=== PATIENT | female | born 1955 | race Caucasian/White ===

== ENCOUNTER → 2018-04-30 14:59 | Outpatient (CLI) | payer OTHER, SELFPAY ==
--- NOTE | 2018-04-30 | DI.MG.S_ITS ---
BILATERAL DIGITAL SCREENING MAMMOGRAM 3D/2D WITH CAD: 04/30/2018 CLINICAL: Routine screening. Family history of breast cancer. Comparison is made to exams dated: 01/02/2017 mammogram, 11/30/2015 mammogram, and 10/13/2014 mammogram - [facility]. The tissue of both breasts is extremely dense, which lowers the sensitivity of mammography. Current study was also evaluated with a Computer Aided Detection (CAD) system. There are benign vascular calcifications and calcifications in both breasts. No significant masses, calcifications, or other findings are seen in either breast. IMPRESSION: BENIGN There is no mammographic evidence of malignancy. A 1 year screening mammogram is recommended. This exam was interpreted at Station ID: [id number]. NOTE: For mammograms, a report in lay terms will be sent to the patient. Approximately 15% of breast malignancies will not be visualized mammographically. In the management of a palpable breast mass, a negative mammogram must not discourage biopsy of a clinically suspicious lesion. Electronically Signed By: Alonso king/michel:05/02/2018 03:15:22 letter sent: Normal Exam ACR BI-RADS Category 2: Benign Finding(s) 3342F
== END ==
PROVIDERS: Visit Provider Registered Nurse Diabetes Educator
DX: Z12.31 Encounter for screening mammogram for malignant neoplasm of breast (principal); Z80.3 Family history of malignant neoplasm of breast
CPT/HCPCS: 77063; 77067

== ENCOUNTER → 2019-05-11 14:51 | Outpatient (CLI) | payer OTHER, SELFPAY ==
--- NOTE | 2019-05-11 | DI.MG.S_ITS ---
BILATERAL DIGITAL SCREENING MAMMOGRAM 3D/2D WITH CAD: 05/11/2019 CLINICAL: Routine screening. Family history of breast cancer. Comparison is made to exams dated: 04/30/2018 mammogram - [facility], 01/02/2017 mammogram, 11/30/2015 mammogram, and 10/13/2014 mammogram - [facility]. The tissue of both breasts is extremely dense, which lowers the sensitivity of mammography. Current study was also evaluated with a Computer Aided Detection (CAD) system. There are benign calcifications in both breasts. There also are benign vascular calcifications in both breasts. No significant masses, calcifications, or other findings are seen in either breast. There has been no significant interval change. IMPRESSION: There is no mammographic evidence of malignancy. A 1 year screening mammogram is recommended. This exam was interpreted at Station ID: [id number]. NOTE: For mammograms, a report in lay terms will be sent to the patient. Approximately 15% of breast malignancies will not be visualized mammographically. In the management of a palpable breast mass, a negative mammogram must not discourage biopsy of a clinically suspicious lesion. Electronically Signed By: Pelon brooke/michel:05/11/2019 16:09:45 letter sent: Normal Exam ACR BI-RADS Category 2: Benign Finding(s) 3342F
== END ==
PROVIDERS: PCP Nurse Practitioner Family; Visit Provider Nurse Practitioner Family
DX: Z12.31 Encounter for screening mammogram for malignant neoplasm of breast (principal); Z80.3 Family history of malignant neoplasm of breast
CPT/HCPCS: 77063; 77067

== ENCOUNTER 2020-03-04 14:06 | Emergency (ER) | payer OTHER, SELFPAY ==
[2020-03-04] VITALS (8 sets, daily range): BP systolic 115–138; BP diastolic 55–92; PULSE 79–98; RESP 18; TEMP 37.3; O2SAT 95–99
[2020-03-04 16:55] LABS: Add Manual Diff / Slide Review NO; Basophils Absolute Auto 100 /uL (0-100); Basophils Percent Auto 0.6 % (0-2); Eosinophils Absolute Auto 0 /uL (0-450); Eosinophils Percent Auto 0.3 % (2-4); Hematocrit 46.6 % (36-46); Hemoglobin 16.1 g/dL (12.0-16.0); Lymphocytes Absolute Auto 2200 /uL (1100-4500); Lymphocytes Percent Auto 20.9 % (25-40); Mean Corpuscular HGB Conc 34.6 % (30-36); Mean Corpuscular Hemoglobin 32.9 PG (26-34); Mean Corpuscular Volume 95.1 fL (80-100); Monocytes Absolute Auto 700 /uL (0-900); Monocytes Percent Auto 6.2 % (3-14); Neutrophils Absolute Auto 7700 /uL (1500-7000); Platelet Count 227 X10^3/uL (150-400); Red Blood Cell Count 4.91 X10^6/uL (4.0-5.2); Red Cell Distribution Width 12.7 % (11.6-14.8); White Blood Cell Count 10.6 X10^3/uL (4.5-11.0)
[2020-03-04] MEDS: ONDANSETRON 4 MG/2 ML INJ (17:01)
[2020-03-04] MEDS: SODIUM CHLORIDE 0.9% 1,000 ML 1000 ML IV (17:03)
[2020-03-04 17:06] LABS: Prothrombin Time 11.3 SECONDS (10.1-12.7)
[2020-03-04 17:09] LABS: PTT Partial Thromboplastin Tim 26 SECONDS (26.4-36.2)
[2020-03-04 17:16] LABS: Alanine Aminotransferase 18 IU/L (<35); Albumin 4.6 g/dL (3.5-5.0); Albumin Globulin Ratio 1.6 (1.0-2.8); Alkaline Phosphatase 111 U/L (38-126); Aspartate Aminotransferase 27 IU/L (14-36); BUN Creatinine Ratio 16.4 (6-22); Bilirubin Total 0.8 mg/dL (0.2-1.3); Blood Urea Nitrogen 12 mg/dL (7-17); Calcium 10.3 mg/dL (8.4-10.2); Carbon Dioxide 25 mmol/L (22-32); Chloride 101 mmol/L (98-107); Estimated Glomerular Filt Rate > 60.0 mL/min (>60); Globulin 2.9 g/dL (1.7-4.1); Glucose 94 mg/dL (80-110); HEMOLYSIS 21 (0-50); Lipase 85 U/L (23-300); Potassium 4.2 mmol/L (3.4-5.1); Sodium 134 mmol/L (137-145); Total Protein 7.5 g/dL (6.3-8.2)
--- NOTE | 2020-03-04 17:49 | DI.CT.S_ITS ---
PROCEDURE: CT ABDOMEN PELVIS W CON INDICATIONS: periumbelical pain, vomiting, stool changes TECHNIQUE: After the administration of intravenous contrast, 5 mm thick sections acquired from the diaphragm to the symphysis. 5 mm coronal and sagittal reformats were acquired. For radiation dose reduction, the following was used: automated exposure control, adjustment of mA and/or kV according to patient size. COMPARISON: None. FINDINGS: Image quality: Excellent. ABDOMEN: Lung bases: Lung bases are clear. Heart size is normal. Solid organs: Liver is normal in size and enhancement. Focal fatty replacement adjacent to the ligament. Gallbladder is unremarkable. Biliary system is non dilated. Pancreas enhances normally. Spleen is normal in size and enhancement. No adrenal nodules. Kidneys demonstrate normal size and enhancement, without hydronephrosis. Peritoneum and bowel: Bowel loops demonstrate normal wall thickness and caliber. No free fluid or air. Large amount of right colonic and transverse colonic fecal debris. Nodes and vessels: No retroperitoneal or mesenteric adenopathy by size criteria. Aorta and inferior vena cava are normal in size. Patchy atherosclerotic calcifications. Miscellaneous: No ventral hernias. PELVIS: Genitourinary: Bladder is quite distended. No bladder wall thickening. Miscellaneous: No inguinal hernias or adenopathy. Surgical absence of the uterus. Bones: No suspicious bony lesions. No vertebral body compression fractures. IMPRESSION: 1. Large amount of fecal debris. No evidence of bowel obstruction. No inflamed bowel loops identified. 2. No evidence of acute abdominal process. 3. Distended bladder. Dictated by: Yon Hicks M.D. on 03/04/2020 at 18:45 Approved by: Yon Hicks M.D. on 03/04/2020 at 18:49
--- NOTE | 2020-03-04 17:58 | ED_ITS ---
HPI - Nausea/Vomiting/Diarrhea <DARLENE Akhtar - Last Filed: 03/04/20 20:16> General Chief complaint: Nausea/Vomiting/Diarrhea Stated complaint: throwing up Time Seen by Provider: 03/04/20 17:10 Source: patient Mode of arrival: Family Vehicle Limitations: no limitations History of Present Illness HPI Narrative: This is a 64-year-old female, smoker, who presents to ED with chief complain of constipation, nausea and vomiting, periumbilical abdominal pain. Patient reports she has had constipation for last 3 weeks and had taken MiraLax and increased fiber intake and noticed uncontrollable soft stooling for last 2 weeks and stop taking MiraLax 2 weeks ago. She noticed more nor malized bowel movements 4 days ago on Saturday and feel urge for bowel movement. Patient had soft small stools about 10 times on Saturday (T-3) since then no bowel movements. Patient has noticed chills but denies fever. She has been having early satiety with decreased oral intake for solids and liquid for last 3 days. She has been having about 2 episodes of emesis daily last 2 days. Patient denies blood in her stool or emesis. Patient reports emesis is projectile. She was able to tolerate crackers yesterday. Patient denies history of abdominal surgeries in the past. Primary care physician is located at [facility]. Patient denies other significant chronic medical history. Related Data Previous Rx's Medication Instructions Recorded ondansetron 4 mg PO Q8H PRN 4 Days #7 tab 03/04/20 Allergies Allergy/AdvReac Type Severity Reaction Status Date / Time From LEVAQUIN Allergy Unknown HIVES Uncoded 03/04/20 14:43 SULFA Allergy Unknown HIVES Uncoded 03/04/20 14:43 Review of Systems <DARLENE Akhtar - Last Filed: 03/04/20 20:16> Review of Systems Narrative: General: Denies fever, (+) chills, fatigue, malaise, sweats. HEENT: Denies sinus pain, ear pain, sore throat, difficulty swallowing, dizziness. Respiratory: Denies dyspnea, cough, wheezing, hemoptysis, sputum. Cardiovascular: Denies chest pain, palpitations, orthopnea, edema. Gastrointestinal: See HPI : Denies dysuria, frequency, incontinence, hematuria, urinary retention. Musculoskeletal: Denies weakness, joint pain or bony pain. Skin: Denies rash, skin lesions, or other. Neurologic: Denies weakness, headache, numbness, change in speech, confusion, seizures, incoordination. Psychiatric: No concerning psychosocial issues. 12-point review of systems is negative except for those stated above. Patient History <Crescencio GERRY ReaganP - Last Filed: 03/04/20 20:16> Medical History (Updated 03/04/20 @ 19:53 by GERRY AkhtarP) Constipation (Acute) Social History (Updated 03/04/20 @ 18:02 by Crescencio Reagan [facility]) Smoking Status: Former smoker Smoking Status: Former smoker alcohol intake frequency: 0-2 drinks per day Substance Use Type: marijuana Exam <[facility] - Last Filed: 03/04/20 20:16> Narrative Exam Narrative: GEN: Alert, oriented x 3, well appearing and nourished, and in no acute distress. Head: Normal cephalic, atraumatic. No scalp or temporal tenderness, palpable mass or rash. EYES: Pupils are equal, round, and reactive to light and accommodation. Extraocular muscles are intact bilaterally. There is no subconjunctival hemorrhage, exudate and sclera non-icteric. ENT: Hearing grossly intact. Nose without bleeding, purulent discharge or deviation. Mucous membrane dry, no mucosal lesion. Throat without erythema, tonsillar hypertrophy or exudate. Uvula in midline, airway patent. Neck: Trachea in midline. No JVD, non-tender without lymphadenopathy. No masses or thyroid megaly. Supple, non-tender and no meningeal signs. CARDIAC: Normal regular rate and rhythm without murmurs, gallops, or rubs. No chest wall tenderness. No peripheral edema, cyanosis or pallor. Capillary refill is less than 2 seconds. RESPIRATORY: Lungs are clear to auscultate bilaterally. No cough, wheezes, rales, or rhonchi. No stridor, respiratory distress, increase work of breat luiz, or accessary muscle used. ABD: Abdomen soft and non-distended. Mild discomfort in periumbilical region per palpation. No guarding or rebound tenderness to palpate. Bowel sounds are normal in all 4 quadrants. There is no palpable masses or organomegaly. EXT: Full painless ROM of all extremities with no loss of sensation, strength, effusion or edema. SKIN: Warm, dry, normal color for patient. No erythema, lesions or rash over visible areas. BACK: Nontender without deformity or crepitance. No flank tenderness. NEUROLOGICAL: Alert and oriented to place, time and person. Sensation and motor function intact bilaterally. No facial droops, dysphasia. PSYCHIATRIC: Good judgement and reason, without hallucinations, abnormal affect or abnormal behaviors during the examination. Patient is not suicidal. Initial Vital Signs Initial Vital Signs: Vital Signs Temperature 99.1 F 03/04/20 14:37 Pulse Rate 98 H 03/04/20 14:37 Respiratory Rate 18 03/04/20 14:37 Blood Pressure 138/92 H 03/04/20 14:37 Pulse Oximetry 99 03/04/20 14:37 <Lovely Land DO - Last Filed: 03/05/20 07:41> Initial Vital Signs Initial Vital Signs: Vital Signs Temperature 99.1 F 03/04/20 14:37 Pulse Rate 98 H 03/04/20 14:37 Respiratory Rate 18 03/04/20 14:37 Blood Pressure 138/92 H 03/04/20 14:37 Pulse Oximetry 99 03/04/20 14:37 Course <DARLENE Akhtar - Last Filed: 03/04/20 20:16> Orders Ordered: Discontinued Medications Sodium Chloride (Normal Saline 0.9%) 1,000 mls @ 1,000 mls/hr IV BOLUS ONE Stop: 03/04/20 18:01 Last Infusion: 03/04/20 18:15 Dose: 0 mls/hr Documented by: Admin: 03/04/20 17:03 Dose: 1,000 mls/hr Documented by: ARIAN Magnesium Citrate (Magnesium Citrate) 300 ml PO NOW ONE Stop: 03/04/20 19:45 Last Admin: 03/04/20 20:15 Dose: 300 ml Documented by: ARIAN Reevaluation(s) Reevaluation #1: Improved nausea, vomiting, abdominal pain Time: 17:45 Consultations Consultation #1: The patient was able to void on her own after CT test. Obtained 600 mL of urine. Bladder scanner shows 0 post void residual urine. Time: 20:09 Vital Signs Vital signs: Vital Signs - 8 hr 03/04/20 14:37 03/04/20 16:58 03/04/20 17:00 Temperature 99.1 F Pulse Rate 98 H 79 81 Respiratory Rate 18 Blood Pressure 138/92 H 138/64 Pulse Oximetry 99 95 96 <Lovely Land DO - Last Filed: 03/05/20 07:41> Orders Ordered: Discontinued Medications Sodium Chloride (Normal Saline 0.9%) 1,000 mls @ 1,000 mls/hr IV BOLUS ONE Stop: 03/04/20 18:01 Last Infusion: 03/04/20 18:15 Dose: 0 mls/hr Documented by: Admin: 03/04/20 17:03 Dose: 1,000 mls/hr Documented by: ARIAN Magnesium Citrate (Magnesium Citrate) 300 ml PO NOW ONE Stop: 03/04/20 19:45 Last Admin: 03/04/20 20:15 Dose: 300 ml Documented by: ARIAN Vital Signs Vital signs: Vital Signs - 8 hr 03/04/20 14:37 03/04/20 16:58 03/04/20 17:00 Temperature 99.1 F Pulse Rate 98 H 79 81 Respiratory Rate 18 Blood Pressure 138/92 H 138/64 Pulse Oximetry 99 95 96 MDM - Nausea/Vomiting/Diarrhea <DARLENE Akhtar - Last Filed: 03/04/20 20:16> Differential Diagnosis Differential diagnosis: Likely gastroenteritis and other (Constipation, appendicitis) Medical Records Attestation: I reviewed the patient's medical records. Lab Data Attestation: I reviewed the patient's lab results. Result diagrams: 03/04/20 16:46 03/04/20 16:46 Labs: Lab Results 03/04/20 03/04/20 03/04/20 Range/Units 16:46 16:46 16:46 WBC 10.6 (4.5-11.0) X10^3/uL RBC 4.91 (4.0-5.2) X10^6/uL Hgb 16.1 H (12.0-16.0) g/dL Hct 46.6 H (36-46) % MCV 95.1 (80-100) fL MCH 32.9 (26-34) PG MCHC 34.6 (30-36) % RDW 12.7 (11.6-14.8) % Plt Count 227 (150-400) X10^3/uL Neut % (Auto) 72.0 (50-75) % Lymph % (Auto) 20.9 L (25-40) % [place] % (Auto) 6.2 (3-14) % Eos % (Auto) 0.3 L (2-4) % Baso % (Auto) 0.6 (0-2) % Neut # (Auto) 7700 H (4496-0826) /uL Lymph # (Auto) 2200 (6345-3721) /uL [place] # (Auto) 700 (0-900) /uL Eos # (Auto) 0 (0-450) /uL Baso # (Auto) 100 (0-100) /uL PT 11.3 (10.1-12.7) SECONDS INR 1.0 (0.9-1.3) APTT 26 L (26.4-36.2) SECONDS Sodium 134 L (137-145) mmol/L Potassium 4.2 (3.4-5.1) mmol/L Chloride 101 (98-107) mmol/L Carbon Dioxide 25 (22-32) mmol/L BUN 12 (7-17) mg/dL Creatinine 0.73 (0.52-1.04) mg/dL Estimated GFR > 60.0 (>60) mL/min BUN/Creatinine Ratio 16.4 (6-22) Glucose 94 (80-110) mg/dL Calcium 10.3 H (8.4-10.2) mg/dL Total Bilirubin 0.8 (0.2-1.3) mg/dL AST 27 (14-36) IU/L ALT 18 (<35) IU/L Alkaline Phosphatase 111 (38-126) U/L Total Protein 7.5 (6.3-8.2) g/dL Albumin 4.6 (3.5-5.0) g/dL Globulin 2.9 (1.7-4.1) g/dL Albumin/Globulin Ratio 1.6 (1.0-2.8) Lipase 85 (23-300) U/L Urine Color Urine Appearance Urine pH (4.5-8.0) Ur Specific Lotus (1.000-1.035) Urine Protein (Negative) Urine Glucose (UA) (Negative) g/dL Urine Ketones (NEGATIVE) Urine Occult Blood (Negative) Urine Nitrate (Negative) Urine Bilirubin (NEGATIVE) Urine Urobilinogen (0.2) E.U./dL Ur Leukocyte Esterase (NEGATIVE) Urine RBC (0-5/HPF) Urine WBC (0-5/HPF) Urine Bacteria (None) Ur Culture Indicated? 03/04/20 Range/Units 19:53 WBC (4.5-11.0) X10^3/uL RBC (4.0-5.2) X10^6/uL Hgb (12.0-16.0) g/dL Hct (36-46) % MCV (80-100) fL MCH (26-34) PG MCHC (30-36) % RDW (11.6-14.8) % Plt Count (150-400) X10^3/uL Neut % (Auto) (50-75) % Lymph % (Auto) (25-40) % [place] % (Auto) (3-14) % Eos % (Auto) (2-4) % Baso % (Auto) (0-2) % Neut # (Auto) (0824-4316) /uL Lymph # (Auto) (5069-3921) /uL [place] # (Auto) (0-900) /uL Eos # (Auto) (0-450) /uL Baso # (Auto) (0-100) /uL PT (10.1-12.7) SECONDS INR (0.9-1.3) APTT (26.4-36.2) SECONDS Sodium (137-145) mmol/L Potassium (3.4-5.1) mmol/L Chloride (98-107) mmol/L Carbon Dioxide (22-32) mmol/L BUN (7-17) mg/dL Creatinine (0.52-1.04) mg/dL Estimated GFR (>60) mL/min BUN/Creatinine Ratio (6-22) Glucose (80-110) mg/dL Calcium (8.4-10.2) mg/dL Total Bilirubin (0.2-1.3) mg/dL AST (14-36) IU/L ALT (<35) IU/L Alkaline Phosphatase (38-126) U/L Total Protein (6.3-8.2) g/dL Albumin (3.5-5.0) g/dL Globulin (1.7-4.1) g/dL Albumin/Globulin Ratio (1.0-2.8) Lipase (23-300) U/L Urine Color Yellow Urine Appearance Clear Urine pH 6.0 (4.5-8.0) Ur Specific Lotus <=1.005 (1.000-1.035) Urine Protein Negative (Negative) Urine Glucose (UA) Negative (Negative) g/dL Urine Ketones Trace H (NEGATIVE) Urine Occult Blood Negative (Negative) Urine Nitrate Negative (Negative) Urine Bilirubin Negative (NEGATIVE) Urine Urobilinogen 0.2 (0.2) E.U./dL Ur Leukocyte Esterase Negative (NEGATIVE) Urine RBC 0-1/hpf (0-5/HPF) Urine WBC None seen (0-5/HPF) Urine Bacteria Few (2-10) H (None) Ur Culture Indicated? Cult not indicated Imaging Data CT scan - abdomen/pelvis: Radiologist's Impression: [place] [address] CT Scan Report Signed Patient: Michelle Tapia LMR#: [id number] : 6Acct:[id number] Age/Sex: 64 / FDate of Service: 03/04/20 Loc: ED Accession Number: [id number] Procedure: CT abdomen pelvis w con Ordering Provider: Crescencio Reagan PROCEDURE: CT ABDOMEN PELVIS W CON INDICATIONS: periumbelical pain, vomiting, stool changes TECHNIQUE: After the administration of intravenous contrast, 5 mm thick sections acquired from the diaphragm to the symphysis. 5 mm coronal and sagittal reformats were acquired. For radiation dose reduction, the following was used: automated exposure control, adjustment of mA and/or kV according to patient size. COMPARISON: None. FINDINGS: Image quality: Excellent. ABDOMEN: Lung bases: Lung bases are clear. Heart size is normal. Solid organs: Liver is normal in size and enhancement. Focal fatty replacement adjacent to the ligament. Gallbladder is unremarkable. Biliary system is non dilated. Pancreas enhances normally. Spleen is normal in size and enhancement. No adrenal nodules. Kidneys demonstrate normal size and enhancement, without hydronephrosis. Peritoneum and bowel: Bowel loops demonstrate normal wall thickness and caliber. No free fluid or air. Large amount of right colonic and transverse colonic fecal debris. Nodes and vessels: No retroperitoneal or mesenteric adenopathy by size criteria. Aorta and inferior vena cava are normal in size. Patchy atherosclerotic calcifications. Miscellaneous: No ventral hernias. PELVIS: Genitourinary: Bladder is quite distended. No bladder wall thickening. Miscellaneous: No inguinal hernias or adenopathy. Surgical absence of the uterus. Bones: No suspicious bony lesions. No vertebral body compression fractures. IMPRESSION: 1. Large amount of fecal debris. No evidence of bowel obstruction. No inflamed bowel loops identified. 2. No evidence of acute abdominal process. 3. Distended bladder. Dictated by: Yon Hicks M.D. on 03/04/2020 at 18:45 Approved by: Yon Hicks M.D. on 03/04/2020 at 18:49 MDM Narrative Medical decision making narrative: This is a 64 year female who presents to ED with decreased appetite with p.o. intake, mild periumbilical pain and no bowel movement for last 3 days. Patient reports history of chronic constipation and used to take MiraLax daily which she has not been taking regularly. No le ukocytosis but mildly elevated neutrophil. Chemistry test was unremarkable. No indication of UTI per urine test./pelvis CT shows large amount of fecal debris is a without bowel obstruction or colitis. No evidence of acute abdominal process. Incidental finding of distended bladder likely from constipation. Patient was able to void 600 mL of urine per request. Bladder scan shows a postvoid residual urine. No stool was fell in rectal vault for rectal exam. Patient medicated with half bottle of magnesium citrate and discharged to home with rest and advised to use later tonight when she gets or tomorrow morning for bowel movements. Return precautions were discussed with patient and advised to resume MiraLax after magnesium citrate use and bowel movements. Patient was also medicated with 1 L of IV fluids and Zofran for nausea which improved her symptoms. Test findings were discussed with patient and advised to follow up with primary care physician. Patient verbalized understanding and in agreement with treatment plan. <Lovely Land, - Last Filed: 03/05/20 07:41> Lab Data Labs: Lab Results 03/04/20 03/04/20 03/04/20 Range/Units 16:46 16:46 16:46 WBC 10.6 (4.5-11.0) X10^3/uL RBC 4.91 (4.0-5.2) X10^6/uL Hgb 16.1 H (12.0-16.0) g/dL Hct 46.6 H (36-46) % MCV 95.1 (80-100) fL MCH 32.9 (26-34) PG MCHC 34.6 (30-36) % RDW 12.7 (11.6-14.8) % Plt Count 227 (150-400) X10^3/uL Neut % (Auto) 72.0 (50-75) % Lymph % (Auto) 20.9 L (25-40) % [place] % (Auto) 6.2 (3-14) % Eos % (Auto) 0.3 L (2-4) % Baso % (Auto) 0.6 (0-2) % Neut # (Auto) 7700 H (5560-1403) /uL Lymph # (Auto) 2200 (5844-4399) /uL [place] # (Auto) 700 (0-900) /uL Eos # (Auto) 0 (0-450) /uL Baso # (Auto) 100 (0-100) /uL PT 11.3 (10.1-12.7) SECONDS INR 1.0 (0.9-1.3) APTT 26 L (26.4-36.2) SECONDS Sodium 134 L (137-145) mmol/L Potassium 4.2 (3.4-5.1) mmol/L Chloride 101 (98-107) mmol/L Carbon Dioxide 25 (22-32) mmol/L BUN 12 (7-17) mg/dL Creatinine 0.73 (0.52-1.04) mg/dL Estimated GFR > 60.0 (>60) mL/min BUN/Creatinine Ratio 16.4 (6-22) Glucose 94 (80-110) mg/dL Calcium 10.3 H (8.4-10.2) mg/dL Total Bilirubin 0.8 (0.2-1.3) mg/dL AST 27 (14-36) IU/L ALT 18 (<35) IU/L Alkaline Phosphatase 111 (38-126) U/L Total Protein 7.5 (6.3-8.2) g/dL Albumin 4.6 (3.5-5.0) g/dL Globulin 2.9 (1.7-4.1) g/dL Albumin/Globulin Ratio 1.6 (1.0-2.8) Lipase 85 (23-300) U/L Urine Color Urine Appearance Urine pH (4.5-8.0) Ur Specific Lotus (1.000-1.035) Urine Protein (Negative) Urine Glucose (UA) (Negative) g/dL Urine Ketones (NEGATIVE) Urine Occult Blood (Negative) Urine Nitrate (Negative) Urine Bilirubin (NEGATIVE) Urine Urobilinogen (0.2) E.U./dL Ur Leukocyte Esterase (NEGATIVE) Urine RBC (0-5/HPF) Urine WBC (0-5/HPF) Urine Bacteria (None) Ur Culture Indicated? 03/04/20 Range/Units 19:53 WBC (4.5-11.0) X10^3/uL RBC (4.0-5.2) X10^6/uL Hgb (12.0-16.0) g/dL Hct (36-46) % MCV (80-100) fL MCH (26-34) PG MCHC (30-36) % RDW (11.6-14.8) % Plt Count (150-400) X10^3/uL Neut % (Auto) (50-75) % Lymph % (Auto) (25-40) % [place] % (Auto) (3-14) % Eos % (Auto) (2-4) % Baso % (Auto) (0-2) % Neut # (Auto) (8970-7154) /uL Lymph # (Auto) (0903-3878) /uL [place] # (Auto) (0-900) /uL Eos # (Auto) (0-450) /uL Baso # (Auto) (0-100) /uL PT (10.1-12.7) SECONDS INR (0.9-1.3) APTT (26.4-36.2) SECONDS Sodium (137-145) mmol/L Potassium (3.4-5.1) mmol/L Chloride (98-107) mmol/L Carbon Dioxide (22-32) mmol/L BUN (7-17) mg/dL Creatinine (0.52-1.04) mg/dL Estimated GFR (>60) mL/min BUN/Creatinine Ratio (6-22) Glucose (80-110) mg/dL Calcium (8.4-10.2) mg/dL Total Bilirubin (0.2-1.3) mg/dL AST (14-36) IU/L ALT (<35) IU/L Alkaline Phosphatase (38-126) U/L Total Protein (6.3-8.2) g/dL Albumin (3.5-5.0) g/dL Globulin (1.7-4.1) g/dL Albumin/Globulin Ratio (1.0-2.8) Lipase (23-300) U/L Urine Color Yellow Urine Appearance Clear Urine pH 6.0 (4.5-8.0) Ur Specific Lotus <=1.005 (1.000-1.035) Urine Protein Negative (Negative) Urine Glucose (UA) Negative (Negative) g/dL Urine Ketones Trace H (NEGATIVE) Urine Occult Blood Negative (Negative) Urine Nitrate Negative (Negative) Urine Bilirubin Negative (NEGATIVE) Urine Urobilinogen 0.2 (0.2) E.U./dL Ur Leukocyte Esterase Negative (NEGATIVE) Urine RBC 0-1/hpf (0-5/HPF) Urine WBC None seen (0-5/HPF) Urine Bacteria Few (2-10) H (None) Ur Culture Indicated? Cult not indicated Discharge Plan Departure Patient Disposition: Home Clinical Impression: Abdominal pain Qualifiers: Abdominal location: periumbilical Qualified Code(s): R10.33 - Periumbilical pain Nausea & vomiting Qualifiers: Vomiting type: unspecified Vomiting Intractability: non-intractable Qualified Code(s): R11.2 - Nausea with vomiting, unspecified Constipation Qualifiers: Constipation type: unspecified constipation type Qualified Code(s): K59.00 - Constipation, unspecified Discharge Date/Time: 03/04/20 20:20 Instructions: DI for Constipation, DI for Urinary Retention in Women, Nausea and Vomiting-Adult Activity Restrictions/Additional Instructions: You have been diagnosed with [mild periumbilical abdominal pain, nausea and vomiting, constipation, urinary retention. Of abdomen/pelvis shows large amount of stool without indication of obstruction or infection. It appears to be your bladder is distended likely from constipation. After the Zofran your nausea has been well managed.]. What to do: *Take your medications as directed. Zofran as needed for nausea and vomiting. This medication has been transmitted to [facility] in [place]. Please take rest of magnesium citrate later on tonight when you get home or tomorrow morning for bowel movements. *Follow up with your primary care provider in 2-3 days, call for an appointment. Let them know you were seen in the ED and that we asked you to be seen in follow up. *Return to ED if you have any new, worsening, or concerning symptoms, such as [chest pain, breathing difficulty, unable to tolerate fluids, fever, or any worsening symptoms for concerns]. Prescriptions: New ondansetron 4 mg tablet,disintegrating 4 mg PO Q8H PRN (Reason: nausea and vomiting) 4 Days Qty: 7 RF: 0 Referrals: Rosa Maria Salazar ARNP [Primary Care Provider] - <Lovely Land DO - Last Filed: 03/05/20 07:41> Cosign ED Attending Arturo Attestation: I was immediately available in the department for consultation. Documentation has been reviewed. I agree with assessment and plan.
[2020-03-04 19:58] LABS: WBC Urine None Seen (0-5/HPF)
[2020-03-04 19:59] LABS: Appearance Urine UA CLEAR; Bilirubin Urine UA NEGATIVE (NEGATIVE); Color Urine UA YELLOW; Glucose Urine UA NEGATIVE (Negative); Ketones Urine UA TRACE (NEGATIVE); Leukocyte Esterase Urine UA NEGATIVE (NEGATIVE); Nitrite Urine UA NEGATIVE (Negative); Occult Blood Urine UA NEGATIVE (Negative); Protein Urine UA NEGATIVE (Negative); Specific Gravity Urine UA <=1.005 (1.000-1.035); Urobilinogen Urine UA 0.2 E.U./dL (0.2)
[2020-03-04 20:07] LABS: RBC Urine 0-1/HPF (0-5/HPF)
[2020-03-04 20:08] LABS: Bacteria Urine Few (2-10); Culture Indicated Urine Cult Not Indicated
[2020-03-04] MEDS: MAGNESIUM CITRATE 300 ML SOLUTION PO (20:15)
== END 2020-03-04 20:20 | disposition home or self-care (01) ==
PROVIDERS: Emergency Medicine; Emergency Provider Nurse Practitioner Family; PCP Nurse Practitioner Family
DX: R10.33 Periumbilical pain (principal); R11.2 Nausea with vomiting, unspecified; K59.00 Constipation, unspecified
CPT/HCPCS: 36415; 51798; 74177; 80053; 81001; 83690; 85025; 85610; 85730; 93005; 96361; 96374; 99284; J2405

== ENCOUNTER → 2020-09-20 12:07 | Outpatient (CLI) | payer MEDICARE, OTHER, SELFPAY ==
--- NOTE | 2020-09-20 12:09 | DI.MG.S_ITS ---
BILATERAL DIGITAL SCREENING MAMMOGRAM 3D/2D WITH CAD: 09/20/2020 CLINICAL: Routine screening. Family history of breast cancer. Comparison is made to exams dated: 05/11/2019 mammogram, 04/30/2018 mammogram - [facility], and 01/02/2017 mammogram - [facility]. The tissue of both breasts is extremely dense, which lowers the sensitivity of mammography. Current study was also evaluated with a Computer Aided Detection (CAD) system. There are benign calcifications in both breasts. There also are benign vascular calcifications in both breasts. No significant masses, calcifications, or other findings are seen in either breast. There has been no significant interval change. IMPRESSION: BENIGN There is no mammographic evidence of malignancy. A 1 year screening mammogram is recommended. This exam was interpreted at Station ID: [id number]. NOTE: For mammograms, a report in lay terms will be sent to the patient. Approximately 15% of breast malignancies will not be visualized mammographically. In the management of a palpable breast mass, a negative mammogram must not discourage biopsy of a clinically suspicious lesion. Electronically Signed By: Lennox calhoun/michel:09/20/2020 16:16:48 letter sent: Normal Exam ACR BI-RADS Category 2: Benign Finding(s) 3342F
[2020-09-20 13:28] LABS: Add Manual Diff / Slide Review NO; Basophils Absolute Auto 0 /uL (0-100); Basophils Percent Auto 0.5 % (0-2); Eosinophils Absolute Auto 100 /uL (0-450); Eosinophils Percent Auto 0.7 % (2-4); Hematocrit 43.8 % (36-46); Hemoglobin 15.1 g/dL (12.0-16.0); Lymphocytes Absolute Auto 2200 /uL (1100-4500); Lymphocytes Percent Auto 27.9 % (25-40); Mean Corpuscular HGB Conc 34.6 % (30-36); Mean Corpuscular Volume 95.5 fL (80-100); Monocytes Absolute Auto 500 /uL (0-900); Monocytes Percent Auto 6.4 % (3-14); Neutrophils Absolute Auto 5200 /uL (1500-7000); Neutrophils Percent Auto 64.5 % (50-75); Platelet Count 195 X10^3/uL (150-400); Red Blood Cell Count 4.58 X10^6/uL (4.0-5.2); Red Cell Distribution Width 12.5 % (11.6-14.8); White Blood Cell Count 8.1 X10^3/uL (4.5-11.0)
[2020-09-20 13:43] LABS: Alanine Aminotransferase 23 IU/L (<35); Albumin 4.1 g/dL (3.5-5.0); Albumin Globulin Ratio 1.4 (1.0-2.8); Alkaline Phosphatase 107 U/L (38-126); Aspartate Aminotransferase 26 IU/L (14-36); BUN Creatinine Ratio 14.9 (6-22); Bilirubin Total 0.5 mg/dL (0.2-1.3); Blood Urea Nitrogen 11 mg/dL (7-17); Calcium 9.5 mg/dL (8.4-10.2); Carbon Dioxide 26 mmol/L (22-32); Chloride 105 mmol/L (98-107); Cholesterol 243 mg/dL (140-199); Estimated Glomerular Filt Rate > 60.0 mL/min (>60); Globulin 2.9 g/dL (1.7-4.1); Glucose 92 mg/dL (80-110); HDL Cholesterol 50 mg/dL (40-60); HEMOLYSIS < 15 (0-50); LDL Cholesterol Calculated 164 mg/dL (<100); Potassium 4.1 mmol/L (3.4-5.1); Sodium 136 mmol/L (137-145); Triglycerides 145 mg/dL (35-150)
[2020-09-20 14:23] LABS: TSH w/ Reflex to FT4 0.46 uIU/mL (0.47-4.68)
[2020-09-20 14:51] LABS: Free T4, Direct Thyroxine 1.25 ng/dL (0.78-2.19)
== END ==
PROVIDERS: PCP Nurse Practitioner Family; Referring Provider Family Medicine; Visit Provider Family Medicine
DX: Z12.31 Encounter for screening mammogram for malignant neoplasm of breast (principal); Z80.3 Family history of malignant neoplasm of breast; Z13.820 Encounter for screening for osteoporosis; M85.852 Other specified disorders of bone density and structure, left thigh; Z78.0 Asymptomatic menopausal state; Z13.220 Encounter for screening for lipoid disorders; K21.9 Gastro-esophageal reflux disease without esophagitis; L63.9 Alopecia areata, unspecified; Z72.0 Tobacco use
CPT/HCPCS: 77063; 77067; 77080; 80053; 80061; 84439; 84443; 85025

== ENCOUNTER → 2020-11-01 14:01 | Outpatient (CLI) | payer MEDICARE, OTHER, SELFPAY ==
[2020-11-01 17:09] LABS: Free T3, Triiodothyronine Free 2.73 pg/mL (2.77-5.27); Free T4, Direct Thyroxine 1.12 ng/dL (0.78-2.19)
[2020-11-01 17:22] LABS: Thyroid Stimulating Hormone 0.899 uIU/mL (0.47-4.68)
== END ==
PROVIDERS: PCP Family Medicine; Referring Provider Family Medicine; Visit Provider Family Medicine
DX: R79.89 Other specified abnormal findings of blood chemistry (principal)
CPT/HCPCS: 36415; 84439; 84443; 84481

== ENCOUNTER → 2021-01-25 13:39 | Outpatient (CLI) | payer MEDICARE, OTHER, SELFPAY ==
[2021-01-25 15:30] LABS: Free T3, Triiodothyronine Free 2.89 pg/mL (2.77-5.27); Free T4, Direct Thyroxine 1.49 ng/dL (0.78-2.19)
[2021-01-25 15:43] LABS: Thyroid Stimulating Hormone 0.039 uIU/mL (0.47-4.68)
== END ==
PROVIDERS: PCP Family Medicine; Referring Provider Family Medicine; Visit Provider Family Medicine
DX: E03.9 Hypothyroidism, unspecified (principal)
CPT/HCPCS: 36415; 84439; 84443; 84481

== ENCOUNTER → 2021-03-16 11:56 | Outpatient (CLI) | payer MEDICARE, OTHER, SELFPAY ==
--- NOTE | 2021-03-16 11:59 | DI.RAD.S_ITS ---
PROCEDURE: XR HIP W PEL IF DONE RT 2V INDICATIONS: pain TECHNIQUE: AP pelvis with lateral view(s) of the right hip(s). COMPARISON: None. FINDINGS: Bones: No acute fracture. Lumbar spondylosis and facet arthropathy. Moderate right hip joint degeneration and mild left hip osteoarthritis. Scattered degenerative subchondral sclerosis and spurring. Soft tissues: The visualized bowel gas pattern is normal. No suspicious soft tissue calcifications. IMPRESSION: Bilateral hip joint degeneration as above. Dictated by: Garland Lundy M.D. on 03/16/2021 at 13:24 Approved by: Garland Lundy M.D. on 03/16/2021 at 13:25
== END ==
PROVIDERS: PCP Family Medicine; Referring Provider Family Medicine; Visit Provider Family Medicine
DX: M25.551 Pain in right hip (principal); M16.0 Bilateral primary osteoarthritis of hip; G89.29 Other chronic pain
CPT/HCPCS: 73502

== ENCOUNTER → 2021-05-02 11:43 | Outpatient (CLI) | payer MEDICARE, OTHER, SELFPAY ==
[2021-05-02 13:23] LABS: Free T3, Triiodothyronine Free 4.12 pg/mL (2.77-5.27); Free T4, Direct Thyroxine 2.23 ng/dL (0.78-2.19)
[2021-05-02 13:41] LABS: Thyroid Stimulating Hormone < 0.015 uIU/mL (0.47-4.68)
[2021-05-02 14:36] LABS: Cholesterol 148 mg/dL (140-199); HDL Cholesterol 60 mg/dL (40-60); LDL Cholesterol Calculated 68 mg/dL (<100); Triglycerides 98 mg/dL (35-150)
== END ==
PROVIDERS: PCP Family Medicine; Referring Provider Family Medicine; Visit Provider Family Medicine
DX: E03.9 Hypothyroidism, unspecified (principal); E78.00 Pure hypercholesterolemia, unspecified
CPT/HCPCS: 36415; 80061; 84439; 84443; 84481

== ENCOUNTER → 2021-09-21 16:10 | Outpatient (CLI) | payer MEDICARE, OTHER, SELFPAY ==
--- NOTE | 2021-09-21 | DI.MG.S_ITS ---
BILATERAL DIGITAL SCREENING MAMMOGRAM 3D/2D WITH CAD: 09/21/2021 Comparison is made to exams dated: 09/20/2020 mammogram, 05/11/2019 mammogram, and 04/30/2018 mammogram - [facility]. The tissue of both breasts is extremely dense, which lowers the sensitivity of mammography. Current study was also evaluated with a Computer Aided Detection (CAD) system. There are benign calcifications in both breasts. There also are benign vascular calcifications in both breasts. No significant masses, calcifications, or other findings are seen in either breast. There has been no significant interval change. IMPRESSION: BENIGN There is no mammographic evidence of malignancy. A 1 year screening mammogram is recommended. This exam was interpreted at Station ID: [id number]. NOTE: For mammograms, a report in lay terms will be sent to the patient. Approximately 15% of breast malignancies will not be visualized mammographically. In the management of a palpable breast mass, a negative mammogram must not discourage biopsy of a clinically suspicious lesion. Electronically Signed By: Lennox calhoun/michel:09/22/2021 08:52:14 letter sent: Normal Exam ACR BI-RADS Category 2: Benign Finding(s) 3342F
== END ==
PROVIDERS: PCP Family Medicine; Referring Provider Family Medicine; Visit Provider Family Medicine
DX: Z12.31 Encounter for screening mammogram for malignant neoplasm of breast (principal)
CPT/HCPCS: 77063; 77067

== ENCOUNTER → 2022-08-15 12:01 | Outpatient (CLI) | payer MEDICARE, OTHER, SELFPAY ==
[2022-08-15 12:33] LABS: Add Manual Diff / Slide Review NO; Basophils Absolute Auto 0 /uL (0-100); Basophils Percent Auto 0.4 % (0-2); Eosinophils Absolute Auto 100 /uL (0-450); Eosinophils Percent Auto 0.9 % (2-4); Hematocrit 45.1 % (36-46); Hemoglobin 15.5 g/dL (12.0-16.0); Lymphocytes Absolute Auto 2200 /uL (1100-4500); Lymphocytes Percent Auto 27.7 % (25-40); Mean Corpuscular HGB Conc 34.3 % (30-36); Mean Corpuscular Hemoglobin 32.6 PG (26-34); Mean Corpuscular Volume 95.1 fL (80-100); Monocytes Absolute Auto 600 /uL (0-900); Monocytes Percent Auto 6.9 % (3-14); Neutrophils Absolute Auto 5200 /uL (1500-7000); Neutrophils Percent Auto 64.1 % (50-75); Platelet Count 196 X10^3/uL (150-400); Red Blood Cell Count 4.74 X10^6/uL (4.0-5.2); Red Cell Distribution Width 13.1 % (11.6-14.8); White Blood Cell Count 8.1 X10^3/uL (4.5-11.0)
[2022-08-15 13:01] LABS: Alanine Aminotransferase 20 IU/L (<35); Albumin 4.1 g/dL (3.5-5.0); Albumin Globulin Ratio 1.5 (1.0-2.8); Alkaline Phosphatase 90 U/L (38-126); Aspartate Aminotransferase 35 IU/L (14-36); BUN Creatinine Ratio 13.2 (6-22); Bilirubin Total 0.6 mg/dL (0.2-1.3); Blood Urea Nitrogen 10 mg/dL (7-17); Carbon Dioxide 28 mmol/L (22-32); Chloride 103 mmol/L (98-107); Cholesterol 145 mg/dL (140-199); Estimated Glomerular Filt Rate > 60 mL/min (>60); Globulin 2.8 g/dL (1.7-4.1); Glucose 91 mg/dL (80-110); HDL Cholesterol 55 mg/dL (40-60); HEMOLYSIS 18 (0-50); LDL Cholesterol Calculated 66 mg/dL (<100); Sodium 139 mmol/L (137-145); Total Protein 6.9 g/dL (6.3-8.2); Triglycerides 118 mg/dL (35-150)
[2022-08-15 13:17] LABS: Free T3, Triiodothyronine Free 3.91 pg/mL (2.77-5.27); Free T4, Direct Thyroxine 2.62 ng/dL (0.78-2.19)
[2022-08-15 13:38] LABS: TSH w/ Reflex to FT4 < 0.02 uIU/mL (0.47-4.68)
[2022-08-15 14:09] LABS: Thyroid Stimulating Hormone < 0.015 uIU/mL (0.47-4.68)
== END ==
PROVIDERS: PCP Family Medicine; Referring Provider Family Medicine; Visit Provider Family Medicine
DX: E03.9 Hypothyroidism, unspecified (principal); E78.00 Pure hypercholesterolemia, unspecified
CPT/HCPCS: 36415; 80053; 80061; 84439; 84443; 84481; 85025

== ENCOUNTER → 2022-10-03 13:17 | Outpatient (CLI) | payer MEDICARE, OTHER, SELFPAY ==
[2022-10-03 14:50] LABS: TSH w/ Reflex to FT4 < 0.02 uIU/mL (0.47-4.68)
[2022-10-03 15:40] LABS: Free T4, Direct Thyroxine 2.64 ng/dL (0.78-2.19)
== END ==
PROVIDERS: PCP Family Medicine; Referring Provider Family Medicine; Visit Provider Family Medicine
DX: E03.9 Hypothyroidism, unspecified (principal)
CPT/HCPCS: 36415; 84439; 84443

== ENCOUNTER 2022-10-05 19:17 | Observation (INO) | payer MEDICARE, OTHER, SELFPAY ==
[2022-10-05] VITALS (17 sets, daily range): BP systolic 159–181; BP diastolic 84–110; PULSE 84–106; RESP 18; TEMP 36.8; O2SAT 95–99; BMI 25.4
--- NOTE | 2022-10-05 19:43 | ED.ABDPAIN ---
HPI - Abdominal Pain General Chief Complaint: Abdominal Pain Stated Complaint: Throwing up and constipation Time Seen by Provider: 10/05/22 19:42 Source: patient Mode of arrival: Ambulatory Limitations: no limitations History of Present Illness HPI narrative: This is a 67-year-old female with hypothyroidism, dyslipidemia, bladder incontinence and anxiety with history of partial hysterectomy. Patient presents with complaint of emesis that started after eating out for dinner at about 4:00 p.m. she states about 10 minutes after they left she started having vomiting and has had persistent emesis since. She states initially was all food and then more bile. She states she is nauseated but does not have a lot of abdominal pain. She has a little bit of epigastric discomfort. She states she is been constipated for quite some time she will have small indy of stool but very for 5 of them and then nothing more this has been going on for several weeks and she states she actually was vomiting about 2 weeks ago and has sort of similar situation. She denies fevers she is felt a little chilled. She has not been having persistent nausea. She has been eating and drinking large glasses of prune juice to help with bowel movements and states she has not been taking much away the solids but mostly protein shakes and liquids. Patient denies back or flank pain. No chest pain or shortness of breath. She does have a little bit of a cough and nasal congestion that is new and has had some sinus pressure that is worsened over the past week. She denies dysuria urgency or frequency. No black or bloody stools. Patient states no black or blood in her emesis. Patient states she is had a prior hysterectomy states her ovaries are still present. Patient states she also had wrist surgery. Patient smokes daily, occasional alcohol, she uses an edible marijuana daily but no illicit drugs. Dr. Lamar. Related Data Home Medications Medication Instructions Recorded Confirmed aspirin 81 mg tablet,delayed 81 mg PO DAILY 08/23/20 08/23/22 release spironolactone 50 mg tablet 100 mg PO DAILY 08/23/20 08/23/22 Previous Rx's Medication Instructions Recorded tolterodine 4 mg capsule,extended See Rx Instructions .Route 02/13/22 release 24 hr .COMPLEX #90 caps venlafaxine 150 mg See Rx Instructions .Route 02/13/22 capsule,extended release 24 hr .COMPLEX #90 caps levothyroxine 88 mcg capsule 88 mcg PO DAILY #60 caps 10/01/22 rosuvastatin 10 mg tablet 10 mg PO QPM #90 tabs 10/01/22 Allergies Allergy/AdvReac Type Severity Reaction Status Date / Time levofloxacin [From Levaquin] Allergy Verified 10/05/22 19:44 Sulfa (Sulfonamide Allergy Verified 10/05/22 19:44 Antibiotics) Review of Systems Review of Systems ROS Unobtainable: All systems reviewed & are unremarkable except as noted in HPI and below Patient History Medical History Alopecia areata (~2004) Bladder incontinence Chicken pox Chronic pain of right knee Chronic right hip pain Constipation Eczema (~2004) GERD without esophagitis Hypothyroidism (acquired) Iliotibial band syndrome of both sides Low TSH level Pure hypercholesterolemia Rosacea (~2019) Surgical History Anesthesia History of foot surgery (~2011) History of hysterectomy (~2009) Family History (Updated 10/06/22 @ 02:52 by DARLENE Ramsay) Father History of heart disease Myocardial infarction Grandfather Cancer Mother Hypertension Social History household members: spouse Smoking Status: Current every day smoker Smoking Status: Current every day smoker alcohol intake frequency: 0-2 drinks per day Substance Use Type: marijuana Exam Narrative Exam Narrative: GENERAL: Alert and oriented x three, female in mild distress HEENT: Head normocephalic, atraumatic, EOMI, pupils reactive, face symmetric, moist mucous membranes NECK: Supple, full range of motion CARDIOVASCULAR: Regular rate and rhythm without murmurs, rubs or gallops. RESPIRATORY: Breath sounds equal bilaterally, no wheezes rales or rhonchi. ABDOMEN: Soft, nontender. Normoactive bowel sounds all 4 quadrants. No guarding or rebound, rigidity, no mass, nondistended. Patient had some dry heaves in the room. No pulsatile mass : No CVA tenderness EXTREMITIES: Normal range of motion, no clubbing or edema. Neurovascularly intact NEUROLOGICAL: Cranial nerves II through XII grossly intact. Moving all extremities SKIN: Warm, dry, no petechiae, no rashes or lesions. Initial Vital Signs Initial Vital Signs: Vital Signs Pulse Oximetry 97 10/05/22 19:28 Course Orders Ordered: ED Orders 10/05/22 19:35 Complete Blood Count AUTO DIFF Stat Comprehensive Metabolic Panel Stat Lactate (Lactic Acid) Stat Lipase Stat 10/05/22 19:42 EKG-12 Lead Stat 10/05/22 20:08 Covid-19 + FLU A/B + RSV - PCR Stat 10/05/22 20:55 CT abdomen pelvis w con Stat 10/05/22 21:13 Blood Culture Stat 10/05/22 22:53 Urine Culture Stat Urine Microscopic Stat 10/06/22 01:36 Procalcitonin Stat 10/06/22 05:00 Complete Blood Count AUTO DIFF DAILY Comprehensive Metabolic Panel DAILY Magnesium DAILY 10/07/22 05:00 Complete Blood Count AUTO DIFF DAILY Comprehensive Metabolic Panel DAILY Magnesium DAILY Aspirin (Aspirin Ec 81 Mg Tablet) 81 mg PO DAILY [facility] Atorvastatin Calcium (Atorvastatin 20 Mg Tablet) 20 mg PO BEDTIME [facility] Enoxaparin Sodium (Enoxaparin 40 Mg/0.4 Ml Syringe) 40 mg SUBCUT DAILY [facility] Sodium Chloride (Normal Saline 0.9%) 1,000 mls @ 100 mls/hr IV CONT NORMA Last Admin: 10/06/22 03:55 Dose: 100 mls/hr Documented By: RORY Ceftriaxone Sodium 1,000 mg/ (Sodium Chloride) 100 mls @ 200 mls/hr IV DAILY [facility] Levothyroxine Sodium (Levothyroxine 88 Mcg Tablet) 88 mcg PO DAILY@0600 [facility] Metoclopramide HCl (Metoclopramide 10 Mg/2 Ml Inj) 5 mg IV Q6HR PRN PRN Reason: Nausea And Vomiting Naloxone HCl (Naloxone 0.4 Mg/Ml Vial) 0.2 mg IV Q2MIN PRN PRN Reason: Opiate Reversal Ondansetron HCl (Ondansetron 4 Mg/2 Ml Inj) 4 mg IV Q6HR PRN PRN Reason: Nausea And Vomiting Sodium Biphosphate/Sodium Phosphate (Fleets Enema) 1 each [place] DAILY PRN PRN Reason: Constipation Venlafaxine HCl (Venlafaxine Er 75 Mg Cap) 150 mg PO DAILY [facility] Discontinued Medications Diphenhydramine HCl (Diphenhydramine 50 Mg/Ml Vial) 50 mg IV NOW ONE Stop: 10/05/22 22:53 Last Admin: 10/05/22 23:03 Dose: 50 mg Documented By: CYNTHIA Sodium Chloride (Normal Saline 0.9%) 1,000 mls @ 1,000 mls/hr IV BOLUS ONE Stop: 10/05/22 20:50 Last Infusion: 10/05/22 21:14 Dose: 0 mls/hr Documented By: Admin: 10/05/22 19:53 Dose: 1,000 mls/hr Documented By: CYNTIHA Lactated Ringer's (Lactated Ringers) 1,000 mls @ 1,000 mls/hr IV BOLUS ONE Stop: 10/05/22 23:51 Last Infusion: 10/06/22 00:11 Dose: 0 mls/hr Documented By: Admin: 10/05/22 23:02 Dose: 1,000 mls/hr Documented By: CYNTHIA Ceftriaxone Sodium 1,000 mg/ (Sodium Chloride) 100 mls @ 200 mls/hr IV NOW ONE Stop: 10/06/22 01:40 Influenza Virus Vaccine (Influenza Hd Vaccine 0.7 Ml Syringe) 0.7 ml IM .ONCE ONE Stop: 10/06/22 03:04 Last Admin: 10/06/22 04:20 Dose: Not Given Documented By: RORY Ketorolac Tromethamine (Ketorolac 30 Mg/Ml Vial) 15 mg IV NOW ONE Stop: 10/05/22 22:53 Last Admin: 10/05/22 23:03 Dose: 15 mg Documented By: CYNTHIA Lorazepam (Lorazepam 2 Mg/Ml Inj) 0.5 mg IV NOW ONE Stop: 10/05/22 21:05 Last Admin: 10/05/22 21:11 Dose: 0.5 mg Documented By: CYNTHIA Metoclopramide HCl (Metoclopramide 10 Mg/2 Ml Inj) 10 mg IV NOW ONE Stop: 10/06/22 01:34 Last Admin: 10/06/22 03:29 Dose: Not Given Documented By: RORY Morphine Sulfate (Morphine 4 Mg/Ml Inj) 4 mg IV NOW ONE Stop: 10/06/22 00:47 Last Admin: 10/06/22 01:05 Dose: 4 mg Documented By: ANIA Ondansetron HCl (Ondansetron 4 Mg Odt) 4 mg PO NOW PRN PRN Reason: Nausea And Vomiting Ondansetron HCl (Ondansetron 4 Mg/2 Ml Inj) 4 mg IV NOW PRN PRN Reason: Nausea And Vomiting Last Admin: 10/05/22 19:53 Dose: 4 mg Documented By: SB Pantoprazole Sodium (Pantoprazole 40 Mg Vial) 80 mg IV NOW ONE Stop: 10/05/22 22:55 Last Admin: 10/05/22 23:02 Dose: 80 mg Documented By: SB Vital Signs Vital signs: Vital Signs - 8 hr 10/05/22 20:37 10/05/22 20:37 10/05/22 21:00 Pulse Rate 93 H 95 H Blood Pressure 173/84 H Pulse Oximetry 98 99 10/05/22 21:29 10/05/22 21:29 10/05/22 21:30 Pulse Rate 93 H Blood Pressure 165/101 H 159/97 H Pulse Oximetry 95 10/05/22 21:30 10/05/22 22:00 10/05/22 22:00 Pulse Rate 94 H 89 Blood Pressure 165/91 H Pulse Oximetry 97 97 10/05/22 22:30 10/05/22 22:30 10/05/22 23:25 Pulse Rate 94 H 87 Blood Pressure 176/84 H Pulse Oximetry 98 96 10/05/22 23:26 10/05/22 23:26 10/05/22 23:28 Pulse Rate 86 84 Blood Pressure 168/91 H Pulse Oximetry 97 96 10/05/22 23:29 10/05/22 23:29 10/05/22 23:30 Pulse Rate 86 Blood Pressure 168/94 H 166/98 H Pulse Oximetry 96 10/05/22 23:30 Pulse Rate 85 Blood Pressure Pulse Oximetry 95 MDM - Abdominal Pain Lab Data 10/05/22 19:35 10/05/22 19:35 Labs: Lab Results 10/05/22 10/05/22 10/05/22 Range/Units 19:35 19:35 19:35 WBC 15.0 H (4.5-11.0) X10^3/uL RBC 4.72 (4.0-5.2) X10^6/uL Hgb 15.1 (12.0-16.0) g/dL Hct 44.5 (36-46) % MCV 94.2 (80-100) fL MCH 31.9 (26-34) PG MCHC 33.9 (30-36) % RDW 12.9 (11.6-14.8) % Plt Count 215 (150-400) X10^3/uL Neut % (Auto) 74.6 (50-75) % Lymph % (Auto) 18.6 L (25-40) % [place] % (Auto) 5.7 (3-14) % Eos % (Auto) 0.3 L (2-4) % Baso % (Auto) 0.8 (0-2) % Neut # (Auto) 58822 H (4234-1961) /uL Lymph # (Auto) 2800 (0405-5899) /uL [place] # (Auto) 900 (0-900) /uL Eos # (Auto) 0 (0-450) /uL Baso # (Auto) 100 (0-100) /uL Sodium 137 (137-145) mmol/L Potassium 3.5 (3.4-5.1) mmol/L Chloride 103 (98-107) mmol/L Carbon Dioxide 23 (22-32) mmol/L BUN 13 (7-17) mg/dL Creatinine 0.70 (0.52-1.04) mg/dL Estimated GFR > 60 (>60) mL/min BUN/Creatinine Ratio 18.6 (6-22) Glucose 120 H (80-110) mg/dL Lactate 1.2 (0.7-2.1) mmol/L Calcium 9.6 (8.4-10.2) mg/dL Total Bilirubin 0.5 (0.2-1.3) mg/dL AST 25 (14-36) IU/L ALT 23 (<35) IU/L Alkaline Phosphatase 113 (38-126) U/L Total Protein 7.3 (6.3-8.2) g/dL Albumin 4.5 (3.5-5.0) g/dL Globulin 2.8 (1.7-4.1) g/dL Albumin/Globulin Ratio 1.6 (1.0-2.8) Lipase 79 (23-300) U/L Procalcitonin (<0.5) ng/mL Urine RBC (0-5/HPF) Urine WBC (0-5/HPF) Ur Squamous Epith Cells (0-5/HPF) Urine Bacteria (None) Micro UA Comment SARS-CoV-2 (PCR) (Negative) Influenza A (RT-PCR) (NEGATIVE) Influenza B (RT-PCR) (NEGATIVE) RSV (PCR) (Negative) 10/05/22 10/05/22 10/05/22 Range/Units 19:35 20:08 22:53 WBC (4.5-11.0) X10^3/uL RBC (4.0-5.2) X10^6/uL Hgb (12.0-16.0) g/dL Hct (36-46) % MCV (80-100) fL MCH (26-34) PG MCHC (30-36) % RDW (11.6-14.8) % Plt Count (150-400) X10^3/uL Neut % (Auto) (50-75) % Lymph % (Auto) (25-40) % [place] % (Auto) (3-14) % Eos % (Auto) (2-4) % Baso % (Auto) (0-2) % Neut # (Auto) (7466-5939) /uL Lymph # (Auto) (9331-5419) /uL [place] # (Auto) (0-900) /uL Eos # (Auto) (0-450) /uL Baso # (Auto) (0-100) /uL Sodium (137-145) mmol/L Potassium (3.4-5.1) mmol/L Chloride (98-107) mmol/L Carbon Dioxide (22-32) mmol/L BUN (7-17) mg/dL Creatinine (0.52-1.04) mg/dL Estimated GFR (>60) mL/min BUN/Creatinine Ratio (6-22) Glucose (80-110) mg/dL Lactate (0.7-2.1) mmol/L Calcium (8.4-10.2) mg/dL Total Bilirubin (0.2-1.3) mg/dL AST (14-36) IU/L ALT (<35) IU/L Alkaline Phosphatase (38-126) U/L Total Protein (6.3-8.2) g/dL Albumin (3.5-5.0) g/dL Globulin (1.7-4.1) g/dL Albumin/Globulin Ratio (1.0-2.8) Lipase (23-300) U/L Procalcitonin 0.03 (<0.5) ng/mL Urine RBC None seen (0-5/HPF) Urine WBC 1-5/hpf (0-5/HPF) Ur Squamous Epith Cells 1-5 /hpf (0-5/HPF) Urine Bacteria Few (2-10) H (None) Micro UA Comment * SARS-CoV-2 (PCR) Negative (Negative) Influenza A (RT-PCR) Flu a negative (NEGATIVE) Influenza B (RT-PCR) Flu b negative (NEGATIVE) RSV (PCR) Negative (Negative) Point of care testing: Urine Dip Bedside Urine Glucose Negative Bedside Urine Bilirubin - Negative Bedside Urine Ketone +/- 5 Urine Specific [place] 1.010 Bedside Urine Occult Blood - Negative Bedside Urine pH 7.0 Bedside Urine Protein - Negative Bedside Urine Urobilinogen - Negative Bedside Urine Nitrite - Negative Bedside Urine Leukocytes +/- [address] scan - abdomen/pelvis: Radiologist's Impression: Close Abdomen/Pelvis CT (Signed) EdAmita - 10/05/22 Launch?Image [address] [address] [address] Scan Report Signed Patient: Michelle Tapia MR#: [id number] : 1955 Acct:[id number] Age/Sex: 67 / F Date of Service: 10/05/22 Loc: ED Accession Number: [id number] ?? Procedure: CT abdomen pelvis w con Ordering Provider: Charissa Poole D.O. PROCEDURE:? CT ABDOMEN PELVIS W CON ? INDICATIONS:? vomiting, constipation ? TECHNIQUE:? After the administration of intravenous contrast, axial sections acquired from the lung bases to the pubic symphysis.? Coronal and sagittal reformats were performed.? For radiation dose reduction, the following was used:? automated exposure control, adjustment of mA and/or kV according to patient size.? ? COMPARISON:? [facility], CT, CT ABDOMEN PELVIS W CON, 03/04/2020, 17:52. ? FINDINGS:? Image quality:? Excellent.? ? Lung bases:? Clear lung bases.? Small hiatal hernia.? Mild distal esophageal edema. Heart:? Normal. ? ABDOMEN: Liver:? No masses Gallbladder:? Normal wall thickness. Biliary ducts:? Nondilated. Pancreas:? Normal. Spleen:? Normal size. Adrenal Glands:? No nodules. Kidneys and Ureters:? Normal enhancement.? No hydronephrosis or hydroureter.? No calcifications. ? Stomach and Bowel:? Stomach and small bowel loops are normal.? Mildly increased quantity of solid stool in the colon.? Appendix is not seen. Peritoneum:? No abnormal intraperitoneal fluid.? No free air.? ? Ventral Wall: ? No hernias.? Abdominal Nodes:? No retroperitoneal or mesenteric adenopathy by size criteria.? Vessels:? Aorta and inferior vena cava are normal in size.? ? PELVIS: Pelvic Organs:? The uterus is absent. Bladder:? Normal wall thickness. Pelvic Nodes: No enlarged lymph nodes.? Miscellaneous: No hernias are seen. ? ? ? Bones:? Unremarkable.? IMPRESSION:? ? 1. Mild colonic obstipation. ? 2. Mild distal esophageal edema and tiny hiatal hernia.? This may be secondary to vomiting or reflux esophagitis.? ? ? Dictated by: Amita Ward M.D. on 10/05/2022 at 22:42 ? ? Approved by: Amita Ward M.D. on 10/05/2022 at 22:45?? ECG Data Attestation: I personally reviewed and interpreted this ECG as follows: Prior ECG tracings: available for review Interpretation: Sinus rhythm rate of 93 NJ 126 QRS is 78 QTC of 450. No acute ST elevation or depression noted. Patient has prior from 02/22/2014 which appears similar. [facility] Narrative Medical decision making narrative: This is a 67-year-old female who presents with emesis, recent constipation with very small pebbly stools, not significant abdominal pain or distention but patient had similar issues with vomiting about 2 weeks ago and has not really been able to tolerate a lot of solids she is been drinking mostly liquid diet. Patient does have history of hysterectomy increasing her risk for issues like bowel obstruction. Patient had labs, CBC, CMP lipase, point of care urine. Labs showed leukocytosis of 15, low lymphocytes, absolute neutrophils are 11,000. CMP is negative, lipase negative. EKG which is negative. UA has a few bacteria, 1-5 wbc's, 1-5 squamous epithelials. Patient is negative for COVID/influenza/RSV. Plan for CT abdomen pelvis to rule out obstructive process versus constipation, possibly patient could have recent food poisoning or other viral illness, she also has had some recent nasal congestion and sinus pressure and cough for the last several days. CT shows mild colonic obstipation, mild distal esophageal edema and tiny hiatal hernia thought secondary to vomiting or reflux from CT no other acute changes appreciated. Appendix is not clearly seen. Patient has been improved after antinausea medications but then has recurrent vomiting, she is had Zofran, Benadryl, Ativan with persistent vomiting she is received fluids so as pain medication. Patient's heart rate has improved, she does not appear septic blood cultures, urine culture pending, lactate was also obtained and is negative. Patient also received Protonix for possible esophagitis or gastritis. Patient has had persistent full spine warmth who doses of antiemetics and case was discussed with hospitalist, DARLENE Lundy who asked that we add on a procalcitonin. We discussed whether or not to start antibiotics patient has not had any UTI type symptoms decision was made to hold. Patient kept for observation. Discharge Plan Departure Patient Disposition: Admitted as Observation Clinical Impression: Vomiting, Esophagitis Admit Date/Time: 10/06/22 01:40 Admit Provider: Michelle Lundy
[2022-10-05 19:52] LABS: Add Manual Diff / Slide Review NO; Basophils Absolute Auto 100 /uL (0-100); Basophils Percent Auto 0.8 % (0-2); Eosinophils Absolute Auto 0 /uL (0-450); Eosinophils Percent Auto 0.3 % (2-4); Hematocrit 44.5 % (36-46); Hemoglobin 15.1 g/dL (12.0-16.0); Lymphocytes Absolute Auto 2800 /uL (1100-4500); Lymphocytes Percent Auto 18.6 % (25-40); Mean Corpuscular HGB Conc 33.9 % (30-36); Mean Corpuscular Hemoglobin 31.9 PG (26-34); Mean Corpuscular Volume 94.2 fL (80-100); Monocytes Absolute Auto 900 /uL (0-900); Monocytes Percent Auto 5.7 % (3-14); Neutrophils Absolute Auto 11200 /uL (1500-7000); Neutrophils Percent Auto 74.6 % (50-75); Platelet Count 215 X10^3/uL (150-400); Red Blood Cell Count 4.72 X10^6/uL (4.0-5.2); Red Cell Distribution Width 12.9 % (11.6-14.8)
[2022-10-05] MEDS: SODIUM CHLORIDE 0.9% 1,000 ML 1000 ML IV (19:53)
[2022-10-05] MEDS: ONDANSETRON 4 MG/2 ML INJ IV (19:53)
[2022-10-05 20:08] LABS: Alanine Aminotransferase 23 IU/L (<35); Albumin 4.5 g/dL (3.5-5.0); Albumin Globulin Ratio 1.6 (1.0-2.8); Alkaline Phosphatase 113 U/L (38-126); Aspartate Aminotransferase 25 IU/L (14-36); BUN Creatinine Ratio 18.6 (6-22); Bilirubin Total 0.5 mg/dL (0.2-1.3); Blood Urea Nitrogen 13 mg/dL (7-17); Calcium 9.6 mg/dL (8.4-10.2); Carbon Dioxide 23 mmol/L (22-32); Chloride 103 mmol/L (98-107); Estimated Glomerular Filt Rate > 60 mL/min (>60); Globulin 2.8 g/dL (1.7-4.1); Glucose 120 mg/dL (80-110); HEMOLYSIS < 15 (0-50); Lipase 79 U/L (23-300); Potassium 3.5 mmol/L (3.4-5.1); Sodium 137 mmol/L (137-145); Total Protein 7.3 g/dL (6.3-8.2)
[2022-10-05 20:48] LABS: Influenza A - CEPHEID Flu A NEGATIVE (NEGATIVE); Influenza B - CEPHEID Flu B NEGATIVE (NEGATIVE); Respiratory Syncytial Virus Negative (Negative)
[2022-10-05 20:49] LABS: COVID-19 CEPHEID 4-PLEX PCR Negative (Negative)
[2022-10-05 20:53] LABS: Lactate (Lactic Acid) 1.2 mmol/L (0.7-2.1)
--- NOTE | 2022-10-05 20:55 | DI.CT.S_ITS ---
PROCEDURE: CT ABDOMEN PELVIS W CON INDICATIONS: vomiting, constipation TECHNIQUE: After the administration of intravenous contrast, axial sections acquired from the lung bases to the pubic symphysis. Coronal and sagittal reformats were performed. For radiation dose reduction, the following was used: automated exposure control, adjustment of mA and/or kV according to patient size. COMPARISON: [facility], CT, CT ABDOMEN PELVIS W CON, 03/04/2020, 17:52. FINDINGS: Image quality: Excellent. Lung bases: Clear lung bases. Small hiatal hernia. Mild distal esophageal edema. Heart: Normal. ABDOMEN: Liver: No masses Gallbladder: Normal wall thickness. Biliary ducts: Nondilated. Pancreas: Normal. Spleen: Normal size. Adrenal Glands: No nodules. Kidneys and Ureters: Normal enhancement. No hydronephrosis or hydroureter. No calcifications. Stomach and Bowel: Stomach and small bowel loops are normal. Mildly increased quantity of solid stool in the colon. Appendix is not seen. Peritoneum: No abnormal intraperitoneal fluid. No free air. Ventral Wall: No hernias. Abdominal Nodes: No retroperitoneal or mesenteric adenopathy by size criteria. Vessels: Aorta and inferior vena cava are normal in size. PELVIS: Pelvic Organs: The uterus is absent. Bladder: Normal wall thickness. Pelvic Nodes: No enlarged lymph nodes. Miscellaneous: No hernias are seen. Bones: Unremarkable. IMPRESSION: 1. Mild colonic obstipation. 2. Mild distal esophageal edema and tiny hiatal hernia. This may be secondary to vomiting or reflux esophagitis. Dictated by: Amita Ward M.D. on 10/05/2022 at 22:42 Approved by: Amita Ward M.D. on 10/05/2022 at 22:45
[2022-10-05] MEDS: LORazepam 2 MG/ML INJ 0.5 MG IV (21:11)
[2022-10-05] MEDS: LACTATED RINGERS 1,000 ML 1000 ML IV (23:02)
[2022-10-05] MEDS: PANTOPRAZOLE 40 MG VIAL 80 MG IV (23:02)
[2022-10-05] MEDS: diphenhydrAMINE 50 MG/ML VIAL IV (23:03)
[2022-10-05] MEDS: KETOROLAC 30 MG/ML VIAL 15 MG IV (23:03)
[2022-10-05 23:50] LABS: Bacteria Urine Few (2-10); RBC Urine None Seen (0-5/HPF); Squamous Epithelial Cell Urine 1-5 /HPF (0-5/HPF); WBC Urine 1-5/HPF (0-5/HPF)
[2022-10-06] MEDS: MORPHINE 4 MG/ML INJ IV (01:05)
[2022-10-06 02:07] LABS: Procalcitonin 0.03 ng/mL (<0.5)
[2022-10-06 02:29] VITALS: BMI 25.4
[2022-10-06 02:34] VITALS: BMI 25.4
--- NOTE | 2022-10-06 02:44 | P.HP_ITS ---
History of Present Illness History of Present Illness Date Patient Seen: 10/06/22 Time Patient Seen: 02:44 Chief complaint: Throwing up and constipation Narrative: Michelle Tapia iss a 67-year-old female with hypothyroidism, dyslipidemia, bladder incontinence and anxiety with history of partial hysterectomy and surgical correction of a hammertoe.? Patient presented to the ED with complaint of emesis that started after eating out for dinner at about 5:00 p.m. she states about 10 minutes after they left she started having vomiting and has had persistent emesis since, initially was all food and then more bile.?Last meal was a salad at a local restaurant. No one else has informed her that they were ill from eating at the same establishment. Denies initiation of new medications. She states she is nauseated but does not have a lot of abdominal pain or soft crab shedder mping.? She has a little bit of epigastric discomfort.? She states she is been constipated for quite some time she will have small indy of stool and has bee going on for several weeks. She states she actually started to vomiting about 2 weeks ago,? She denies fevers she is felt a little chilled.? She has not been having persistent nausea.? She has been eating and drinking large glasses of prune juice to help with bowel movements and states she has not been taking much solids but mostly protein shakes and liquids.? Patient denies back or flank pain.? No chest pain or shortness of breath.? She does have a little bit of a cough and nasal congestion that is new and has had some sinus pressure that is worsened over the past week.? She denies dysuria urgency or frequency.? No black or bloody stools.? Patient states no black or blood in her emesis.? Patient states she is had a prior hysterectomy states her ovaries are still present.? Patient smokes daily, 1/2 to 1 ppd depending on her stress level, occasional alcohol, she uses an edible marijuana daily for sleep.? CT of the abdomen and pelvis only reported mild colonic obstipation and mild distal esophageal edema with a small hiatal hernia felt to be likely due to vomiting or reflux esophagitis. Aside from a mildly elevated white count which could also be stress-induced her labs are unremarkable. Procalcitonin and COVID-19 PCR were both negative Patient History Medical History Alopecia areata (~2004) Bladder incontinence Chicken pox Chronic pain of right knee Chronic right hip pain Constipation Eczema (~2004) GERD without esophagitis Hypothyroidism (acquired) Iliotibial band syndrome of both sides Low TSH level Pure hypercholesterolemia Rosacea (~2019) Surgical History Anesthesia History of foot surgery (~2011) History of hysterectomy (~2009) Family & Social History Family History (Updated 10/06/22 @ 02:52 by DARLENE Ramsay) Father History of heart disease Myocardial infarction Grandfather Cancer Mother Hypertension Safety & Behavioral: Feels Safe in Current Yes Environment Tobacco & Substance use: Smoking Status Current every day smoker alcohol intake frequency 0-2 drinks per day Substance Use Type marijuana Meds Home Medications and Allergies Home Medications Medication Instructions Recorded Confirmed Type aspirin 81 mg tablet,delayed 81 mg PO DAILY 08/23/20 08/23/22 History release spironolactone 50 mg tablet 100 mg PO DAILY 08/23/20 08/23/22 History tolterodine 4 mg capsule,extended See Rx Instructions .Route 02/13/22 08/23/22 Rx release 24 hr .COMPLEX #90 caps venlafaxine 150 mg See Rx Instructions .Route 02/13/22 08/23/22 Rx capsule,extended release 24 hr .COMPLEX #90 caps levothyroxine 88 mcg capsule 88 mcg PO DAILY #60 caps 10/01/22 Rx rosuvastatin 10 mg tablet 10 mg PO QPM #90 tabs 10/01/22 Rx Allergies Allergy/AdvReac Type Severity Reaction Status Date / Time levofloxacin [From Levaquin] Allergy Verified 10/05/22 19:44 Sulfa (Sulfonamide Allergy Verified 10/05/22 19:44 Antibiotics) Review of Systems Review of Systems ROS: Yes All systems reviewed with the patient and are negative except as otherwise documented Exam Vital Signs (past 8 hours): - 10/05/22 19:33 10/05/22 19:28 10/05/22 19:52 Temperature 98.3 F Pulse Rate 105 H 96 H Respiratory Rate 18 Blood Pressure 181/100 H Pulse Oximetry 98 97 98 Oxygen Delivery Method Room Air 10/05/22 20:00 10/05/22 20:01 10/05/22 20:01 Temperature Pulse Rate 106 H 97 H Respiratory Rate Blood Pressure 179/110 H Pulse Oximetry 98 98 Oxygen Delivery Method 10/05/22 20:30 10/05/22 20:37 10/05/22 20:37 Temperature Pulse Rate 94 H 93 H Respiratory Rate Blood Pressure 173/84 H Pulse Oximetry 96 98 Oxygen Delivery Method 10/05/22 21:00 10/05/22 21:29 10/05/22 21:29 Temperature Pulse Rate 95 H 93 H Respiratory Rate Blood Pressure 165/101 H Pulse Oximetry 99 95 Oxygen Delivery Method 10/05/22 21:30 10/05/22 21:30 10/05/22 22:00 Temperature Pulse Rate 94 H Respiratory Rate Blood Pressure 159/97 H 165/91 H Pulse Oximetry 97 Oxygen Delivery Method 10/05/22 22:00 10/05/22 22:30 10/05/22 22:30 Temperature Pulse Rate 89 94 H Respiratory Rate Blood Pressure 176/84 H Pulse Oximetry 97 98 Oxygen Delivery Method 10/05/22 23:25 10/05/22 23:26 10/05/22 23:26 Temperature Pulse Rate 87 86 Respiratory Rate Blood Pressure 168/91 H Pulse Oximetry 96 97 Oxygen Delivery Method 10/05/22 23:28 10/05/22 23:29 10/05/22 23:29 Temperature Pulse Rate 84 86 Respiratory Rate Blood Pressure 168/94 H Pulse Oximetry 96 96 Oxygen Delivery Method 10/05/22 23:30 10/05/22 23:30 Temperature Pulse Rate 85 Respiratory Rate Blood Pressure 166/98 H Pulse Oximetry 95 Oxygen Delivery Method Oxygen Delivery Method Room Air Narrative Exam Narrative: Gen: Alert, oriented, well-developed 67 y.o. female, mildly uncomfortable appearing HEENT: normocephalic, atraumatic, conjunctiva clear, sclera non-icteric, oral mucosa pink and moist Neck: supple, full ROM, no JVD, trachea is midline Resp: Lungs CTA, non-labored breathing CV: RRR, no murmur or rubs Abd: soft, non-tender, normoactive BTs Skin: small bruising and petechie on arms, dry and intact Neuro: Alert and oriented X 4 w/no focal deficits. Speech clear and coherent. Extremities: moves all 4 extremities, is ambulatory, negative Humaira?s sign Psyche: normal mood and affect. Objective Labs 10/05/22 19:35 10/05/22 19:35 Labs: Laboratory Results - last 24 hr 10/05/22 10/05/22 10/05/22 19:35 19:35 19:35 WBC 15.0 H RBC 4.72 Hgb 15.1 Hct 44.5 MCV 94.2 MCH 31.9 MCHC 33.9 RDW 12.9 Plt Count 215 Neut % (Auto) 74.6 Lymph % (Auto) 18.6 L [place] % (Auto) 5.7 Eos % (Auto) 0.3 L Baso % (Auto) 0.8 Neut # (Auto) 28503 H Lymph # (Auto) 2800 [place] # (Auto) 900 Eos # (Auto) 0 Baso # (Auto) 100 Sodium 137 Potassium 3.5 Chloride 103 Carbon Dioxide 23 BUN 13 Creatinine 0.70 Estimated GFR > 60 BUN/Creatinine Ratio 18.6 Glucose 120 H Lactate 1.2 Calcium 9.6 Total Bilirubin 0.5 AST 25 ALT 23 Alkaline Phosphatase 113 Total Protein 7.3 Albumin 4.5 Globulin 2.8 Albumin/Globulin Ratio 1.6 Lipase 79 Procalcitonin Urine RBC Urine WBC Ur Squamous Epith Cells Urine Bacteria Micro UA Comment SARS-CoV-2 (PCR) Influenza A (RT-PCR) Influenza B (RT-PCR) RSV (PCR) 10/05/22 10/05/22 10/05/22 19:35 20:08 22:53 WBC RBC Hgb Hct MCV MCH MCHC RDW Plt Count Neut % (Auto) Lymph % (Auto) [place] % (Auto) Eos % (Auto) Baso % (Auto) Neut # (Auto) Lymph # (Auto) [place] # (Auto) Eos # (Auto) Baso # (Auto) Sodium Potassium Chloride Carbon Dioxide BUN Creatinine Estimated GFR BUN/Creatinine Ratio Glucose Lactate Calcium Total Bilirubin AST ALT Alkaline Phosphatase Total Protein Albumin Globulin Albumin/Globulin Ratio Lipase Procalcitonin 0.03 Urine RBC None seen Urine WBC 1-5/hpf Ur Squamous Epith Cells 1-5 /hpf Urine Bacteria Few (2-10) H Micro UA Comment * SARS-CoV-2 (PCR) Negative Influenza A (RT-PCR) Flu a negative Influenza B (RT-PCR) Flu b negative RSV (PCR) Negative Assessment & Plan Assessment & Plan narrative: Michelle Tapia is placed into observation to help manage her persistent nausea and vomiting and to treat an asymtomatic UTI Persistent nausea and vomiting, acute and present on admission * She will be administered IV zofran and reglan * NPO, advance diet as tolerated UTI, asymptomatic, present on admission * Culture pending * IV ceftriaxone 1 gram daily Hypothyroidism, chronic * Her dose was recently reduced from 100 mcg to 88 mcg and will be continued when she can tolerate oral medication HLD, Chronic * She normally takes rosuvastatin, 10, and can be substituted w/atorvastatin 20 mg when she can tolerate PO Anxiety, chronic * She normally takes extended release venlafaxine 150 which will be continued when she can tolerate PO Other independent historians: None Discussion of results, plan of care with independent HCP/other: ED provider VTE Prophylaxis: Wells risk score 0 X Enoxaparin 40 mg subQ once daily X Bilateral SCDs Patient is placed into observation as her stay is not expected to exceed 2 midnights. FEN: IV fluids: NS at 100 m/hour, diet: NPO, advance as tolerated to heart healthy, labs: CBC, C/BMP, liver enzymes, Mag, PT/INR Consultants None Social determinants of health: none identified Dispo: likely d/c to home Code status: full code as discussed with the patient who identifies her Saul as her surrogate and POA. [X] I have utilized all available immediate resources to obtain, update, or review of the patient's current medications VTE Deep Vein Thrombosis/Pulmonary Embolism Present on Admission: No MIPS - Admit I confirm the patient?s Advance Care Plan is present, Code status is documented, Surrogate decision maker is in patient?s record: Yes MIPS - DC The patient has current or prior documentation of left ventricular ejection fraction (LVEF) less than 40%, or moderate or severely depressed left ventricular systolic function.: No COVID-19 COVID-19 status: Negative Result date/Date tested (Pos, Neg/Pending): 10/06/22
[2022-10-06 02:59] VITALS: BP 153/73; PULSE 95; RESP 16; TEMP 36.9; O2SAT 98
[2022-10-06 03:42] VITALS: O2SAT 98
[2022-10-06] MEDS: SODIUM CHLORIDE 0.9% 1,000 ML 100 ML IV ×3 (03:55→23:09)
[2022-10-06 05:55] LABS: Add Manual Diff / Slide Review NO; Basophils Absolute Auto 0 /uL (0-100); Basophils Percent Auto 0.1 % (0-2); Eosinophils Absolute Auto 0 /uL (0-450); Hematocrit 41.6 % (36-46); Hemoglobin 14.2 g/dL (12.0-16.0); Lymphocytes Absolute Auto 1700 /uL (1100-4500); Lymphocytes Percent Auto 14.4 % (25-40); Mean Corpuscular Hemoglobin 32.1 PG (26-34); Mean Corpuscular Volume 94.3 fL (80-100); Monocytes Absolute Auto 600 /uL (0-900); Monocytes Percent Auto 5.1 % (3-14); Neutrophils Absolute Auto 9700 /uL (1500-7000); Neutrophils Percent Auto 80.4 % (50-75); Platelet Count 177 X10^3/uL (150-400); Red Blood Cell Count 4.42 X10^6/uL (4.0-5.2); Red Cell Distribution Width 12.9 % (11.6-14.8)
[2022-10-06 06:02] LABS: Alanine Aminotransferase 21 IU/L (<35); Albumin 3.9 g/dL (3.5-5.0); Albumin Globulin Ratio 1.6 (1.0-2.8); Alkaline Phosphatase 91 U/L (38-126); Aspartate Aminotransferase 25 IU/L (14-36); Bilirubin Total 0.7 mg/dL (0.2-1.3); Blood Urea Nitrogen 9 mg/dL (7-17); Calcium 8.8 mg/dL (8.4-10.2); Carbon Dioxide 24 mmol/L (22-32); Chloride 103 mmol/L (98-107); Estimated Glomerular Filt Rate > 60 mL/min (>60); Globulin 2.4 g/dL (1.7-4.1); Glucose 118 mg/dL (80-110); HEMOLYSIS < 15 (0-50); Magnesium 1.8 mg/dL (1.6-2.3); Potassium 4.1 mmol/L (3.4-5.1); Sodium 135 mmol/L (137-145); Total Protein 6.3 g/dL (6.3-8.2)
[2022-10-06] MEDS: LEVOTHYROXINE 88 MCG TABLET PO (06:12)
[2022-10-06 07:00] VITALS: O2SAT 98
[2022-10-06] MEDS: VENLAFAXINE ER 75 MG CAP 150 MG PO (09:17)
[2022-10-06] MEDS: ENOXAPARIN 40 MG/0.4 ML SYRINGE SUBCUT (09:17)
[2022-10-06] MEDS: PANTOPRAZOLE 40 MG VIAL IV (09:17)
[2022-10-06] MEDS: ASPIRIN EC 81 MG TABLET PO (09:17)
--- NOTE | 2022-10-06 11:34 | CM.DANOTE ---
Initial DCP Assessment Note Pt is a 67yo female, resident of [place] , arrives w/ persistent N/V and complaints of constipation, admitted observation for further work up and management of these sx Patient discussed in multidisciplinary rounds this morning; patient expected to return home today if N/V subsides PCP: Tato Lamar Payer: [facility]/[employer] Met w/patient to introduce self and role. Brief visit, patient denies needs from this [employer]. Patient indp and active at baseline, plans to return home w/her upon discharge Plan: Anticipate return home w/spouse upon discharge, close outpatient f/u likely recommended ADÁN Robbins Discharge Planning/Care Management CM Discharge Assessment Start: 10/06/22 11:29 Freq: Status: Active Protocol: Document 10/06/22 11:30 EDSON (Rec: 10/06/22 11:34 EDSON [id number]) Discharge Planning Assessment Assigned [employer] Feeder ADÁN Snyder DPOA/Assigned Designee Name Saul Tapia, spouse Contact Information [phone] Advance Directives? No History Provided By Patient,Medical Record Prior Living Arrangements House Household Members spouse Type of transporation used prior to Drives own vehicle admit Independent with ADL's Yes Is patient alert and oriented? Yes Barriers to Discharge No Comment Home w/spouse upon discharge Discharge Plan Home Transportation Arrangement Family Referrals Initiated None needed Whiteboard Updated in Patient Room with Yes name and ext. # of Cotton Feeder
[2022-10-06 13:30] VITALS: BP 116/60; PULSE 92; RESP 19; TEMP 36.7; O2SAT 96
[2022-10-06] MEDS: SENNOSIDES 8.6 MG TABLET PO ×2 (13:30→20:39)
[2022-10-06] MEDS: ATORVASTATIN 20 MG TABLET PO (20:39)
[2022-10-06 23:00] VITALS: O2SAT 97
[2022-10-06 23:45] VITALS: BP 116/61; PULSE 79; RESP 15; TEMP 36.6; O2SAT 97
[2022-10-07 05:45] LABS: Add Manual Diff / Slide Review NO; Basophils Absolute Auto 0 /uL (0-100); Basophils Percent Auto 0.2 % (0-2); Eosinophils Absolute Auto 0 /uL (0-450); Eosinophils Percent Auto 0.5 % (2-4); Hematocrit 37.6 % (36-46); Lymphocytes Absolute Auto 2200 /uL (1100-4500); Lymphocytes Percent Auto 33.8 % (25-40); Mean Corpuscular HGB Conc 34.5 % (30-36); Mean Corpuscular Hemoglobin 32.5 PG (26-34); Mean Corpuscular Volume 94.3 fL (80-100); Monocytes Absolute Auto 500 /uL (0-900); Monocytes Percent Auto 7.7 % (3-14); Neutrophils Absolute Auto 3800 /uL (1500-7000); Neutrophils Percent Auto 57.8 % (50-75); Platelet Count 159 X10^3/uL (150-400); Red Blood Cell Count 3.99 X10^6/uL (4.0-5.2); White Blood Cell Count 6.6 X10^3/uL (4.5-11.0)
[2022-10-07 05:50] LABS: Alanine Aminotransferase 19 IU/L (<35); Albumin 3.3 g/dL (3.5-5.0); Albumin Globulin Ratio 1.4 (1.0-2.8); Alkaline Phosphatase 76 U/L (38-126); Aspartate Aminotransferase 20 IU/L (14-36); BUN Creatinine Ratio 12.3 (6-22); Bilirubin Total 0.7 mg/dL (0.2-1.3); Blood Urea Nitrogen 8 mg/dL (7-17); Calcium 8.5 mg/dL (8.4-10.2); Carbon Dioxide 23 mmol/L (22-32); Chloride 111 mmol/L (98-107); Estimated Glomerular Filt Rate > 60 mL/min (>60); Globulin 2.3 g/dL (1.7-4.1); Glucose 89 mg/dL (80-110); HEMOLYSIS < 15 (0-50); Potassium 3.8 mmol/L (3.4-5.1); Sodium 139 mmol/L (137-145); Total Protein 5.6 g/dL (6.3-8.2)
[2022-10-07] MEDS: LEVOTHYROXINE 88 MCG TABLET PO (06:00)
[2022-10-07] MEDS: cefTRIAXone 1,000 MG in SODIUM CHLORIDE 0.9% 100 ML 200 MG IV (08:29)
[2022-10-07] MEDS: ASPIRIN EC 81 MG TABLET PO (08:29)
[2022-10-07] MEDS: PANTOPRAZOLE 40 MG VIAL IV (08:30)
[2022-10-07] MEDS: ENOXAPARIN 40 MG/0.4 ML SYRINGE SUBCUT (08:30)
[2022-10-07] MEDS: VENLAFAXINE ER 75 MG CAP 150 MG PO (08:30)
[2022-10-07] MEDS: SENNOSIDES 8.6 MG TABLET PO ×2 (08:30→20:03)
[2022-10-07] MEDS: LACTULOSE 20 GM/30 ML SOLUTION PO (08:30)
[2022-10-07 08:55] LABS: Free T3, Triiodothyronine Free 3.11 pg/mL (2.77-5.27)
[2022-10-07] MEDS: METOCLOPRAMIDE 10 MG/2 ML INJ 5 MG IV (09:57)
[2022-10-07] MEDS: SODIUM CHLORIDE 0.9% 1,000 ML 100 ML IV ×2 (09:58→19:52)
[2022-10-07 11:30] VITALS: BP 186/100; PULSE 92; RESP 21; TEMP 36.9; O2SAT 96
[2022-10-07] MEDS: ONDANSETRON 4 MG/2 ML INJ IV (11:55)
[2022-10-07] MEDS: MORPHINE 4 MG/ML INJ IV (12:09)
--- NOTE | 2022-10-07 14:30 | PM.PN.1 ---
Subjective Subjective Interval history: Michelle Tapia iss a 67-year-old female with hypothyroidism, dyslipidemia, bladder incontinence and anxiety with history of partial hysterectomy and surgical correction of a hammertoe.? Patient presented to the ED with complaint of emesis that started after eating out for dinner at about 5:00 p.m. she states about 10 minutes after they left she started having vomiting and has had persistent emesis since, initially was all food and then more bile.?Last meal was a salad at a local restaurant.? No one else has informed her that they were ill from eating at the same establishment. Denies initiation of new medications.? She states she is nauseated but does not have a lot of abdominal pain or cramping.? She has a little bit of epigastric discomfort.? She states she is been constipated for quite some time she will have small indy of stool and has bee going on for several weeks. She states she actually started to vomiting about 2 weeks ago. Has had a set back with vomiting today with increase in diet. Exam Vital Signs (past 8 hours): - 10/07/22 11:30 Temperature 98.5 F Pulse Rate 92 H Respiratory Rate 21 Blood Pressure 186/100 H Pulse Oximetry 96 Oxygen Delivery Method Room Air Oxygen Flow Rate 0 Narrative Exam Narrative: Gen: Alert, oriented, well-developed female HEENT: normocephalic, atraumatic, conjunctiva clear, sclera non-icteric, oral mucosa pink and moist Neck: supple, full ROM, no JVD, trachea is midline Resp: Lungs CTA, non-labored breathing CV: RRR, no murmur or rubs Abd: soft, minimal discomfort on palpation, normoactive BTs Skin: small bruising and petechie on arms, dry and intact Neuro: Alert and oriented X 4 w/no focal deficits. Speech clear and coherent. Extremities: moves all 4 extremities, is ambulatory, negative Humaira?s sign Psyche: normal mood and affect. Objective Labs 10/07/22 05:25 10/07/22 05:25 Labs: Laboratory Results - last 24 hr 10/07/22 10/07/22 10/07/22 05:25 05:25 05:25 WBC 6.6 RBC 3.99 L Hgb 13.0 Hct 37.6 MCV 94.3 MCH 32.5 MCHC 34.5 RDW 13.0 Plt Count 159 Neut % (Auto) 57.8 D Lymph % (Auto) 33.8 [place] % (Auto) 7.7 Eos % (Auto) 0.5 L Baso % (Auto) 0.2 Neut # (Auto) 3800 Lymph # (Auto) 2200 [place] # (Auto) 500 Eos # (Auto) 0 Baso # (Auto) 0 Sodium 139 Potassium 3.8 Chloride 111 H Carbon Dioxide 23 BUN 8 Creatinine 0.65 Estimated GFR > 60 BUN/Creatinine Ratio 12.3 Glucose 89 Calcium 8.5 Magnesium 2.0 Total Bilirubin 0.7 AST 20 ALT 19 Alkaline Phosphatase 76 Total Protein 5.6 L Albumin 3.3 L Globulin 2.3 Albumin/Globulin Ratio 1.4 Free T3 3.11 [facility] Medical History Alopecia areata (~2004) Bladder incontinence Chicken pox Chronic pain of right knee Chronic right hip pain Constipation Eczema (~2004) GERD without esophagitis Hypothyroidism (acquired) Iliotibial band syndrome of both sides Low TSH level Pure hypercholesterolemia Rosacea (~2019) Surgical History Anesthesia History of foot surgery (~2011) History of hysterectomy (~2009) Family History (Updated 10/06/22 @ 02:52 by DARLENE Ramsay) Father History of heart disease Myocardial infarction Grandfather Cancer Mother Hypertension Social History household members: spouse Smoking Status: Current every day smoker Assessment & Plan Assessment & Plan narrative: 1. Persistent nausea and vomiting, acute and present on admission. Go to clear fluid diet and control N/V. 2. Concern UTI, asymptomatic, present on admission. Cultrue negative. Con discontinue Ceftriaxone. 3. Hypothyroidism, chronic, recent dose increase. Continue. TSH is low and free T4 is high however free T3 is in the normal range. Therefore was continue on current dosage. 4. HLD, Chronic She normally takes rosuvastatin, 10, and can be substituted w/atorvastatin 20 mg when she can tolerate PO 5. Anxiety, chronic Continue Venlafaxine 6. History of hysterectomy and CT abdomen showing mild colonic obstipation which is likley the cause of patient's symptoms. Symptoms still persistent go to clear fluid diet until settled. 7. VTE Prophylaxis: Wells risk score 0 X Enoxaparin 40 mg subQ once daily X Bilateral SCDs Dispo: likely d/c to home Code status: full code as discussed with the patient who identifies her Saul as? her surrogate and POA. VTE Deep Vein Thrombosis/Pulmonary Embolism Present on Admission: No I confirm the patient?s Advance Care Plan is present, Code status is documented, Surrogate decision maker is in patient?s record: Yes MIPS - DC The patient has current or prior documentation of left ventricular ejection fraction (LVEF) less than 40%, or moderate or severely depressed left ventricular systolic function.: No COVID-19 COVID-19 status: Negative Result date/Date tested (Pos, Neg/Pending): 10/06/22 Time Spent With Patient Critical Care time: I spent a total of [] minutes of critical care time on this patient's care today; this time is exclusive of procedural time.
[2022-10-07 20:00] VITALS: BP 120/58; PULSE 77; RESP 17; TEMP 36.5; O2SAT 95
[2022-10-07] MEDS: ATORVASTATIN 20 MG TABLET PO (20:02)
[2022-10-08] MEDS: SODIUM CHLORIDE 0.9% 1,000 ML 100 ML IV (05:14)
[2022-10-08 05:43] LABS: Add Manual Diff / Slide Review NO; Basophils Absolute Auto 0 /uL (0-100); Basophils Percent Auto 0.3 % (0-2); Eosinophils Absolute Auto 100 /uL (0-450); Eosinophils Percent Auto 0.8 % (2-4); Hematocrit 37.2 % (36-46); Hemoglobin 12.5 g/dL (12.0-16.0); Lymphocytes Absolute Auto 2200 /uL (1100-4500); Lymphocytes Percent Auto 28.3 % (25-40); Mean Corpuscular HGB Conc 33.8 % (30-36); Mean Corpuscular Hemoglobin 31.9 PG (26-34); Mean Corpuscular Volume 94.4 fL (80-100); Monocytes Absolute Auto 600 /uL (0-900); Monocytes Percent Auto 7.8 % (3-14); Neutrophils Absolute Auto 4800 /uL (1500-7000); Neutrophils Percent Auto 62.8 % (50-75); Platelet Count 158 X10^3/uL (150-400); Red Blood Cell Count 3.94 X10^6/uL (4.0-5.2); Red Cell Distribution Width 12.9 % (11.6-14.8); White Blood Cell Count 7.6 X10^3/uL (4.5-11.0)
[2022-10-08 06:05] LABS: BUN Creatinine Ratio 11.3 (6-22); Blood Urea Nitrogen 7 mg/dL (7-17); Calcium 8.4 mg/dL (8.4-10.2); Carbon Dioxide 24 mmol/L (22-32); Chloride 109 mmol/L (98-107); Estimated Glomerular Filt Rate > 60 mL/min (>60); Glucose 83 mg/dL (80-110); HEMOLYSIS 17 (0-50); Potassium 3.6 mmol/L (3.4-5.1); Sodium 139 mmol/L (137-145)
[2022-10-08] MEDS: PANTOPRAZOLE DR 40 MG TABLET PO (06:05)
[2022-10-08] MEDS: LEVOTHYROXINE 88 MCG TABLET PO (06:05)
[2022-10-08 07:00] VITALS: BP 135/74; PULSE 69; RESP 16; TEMP 37; O2SAT 93
[2022-10-08] MEDS: ENOXAPARIN 40 MG/0.4 ML SYRINGE SUBCUT (08:43)
[2022-10-08] MEDS: ASPIRIN EC 81 MG TABLET PO (08:43)
[2022-10-08] MEDS: cefTRIAXone 1,000 MG in SODIUM CHLORIDE 0.9% 100 ML 200 MG IV (08:43)
[2022-10-08] MEDS: SENNOSIDES 8.6 MG TABLET PO (08:44)
[2022-10-08] MEDS: LACTULOSE 20 GM/30 ML SOLUTION PO (08:44)
[2022-10-08] MEDS: VENLAFAXINE ER 75 MG CAP 150 MG PO (08:44)
[2022-10-08] MEDS: MAG HYDROX/ALUM/SIMETH 30 ML UDC PO (11:51)
--- NOTE | 2022-10-08 15:20 | P.DS_ITS ---
History of Present Illness History of Present Illness Chief complaint: Throwing up and constipation Narrative: Tolerating fluid well and had a good bowel movement today. Eager to go home. Discharge Providers Provider Date of admission: 10/06/22 01:40 Discharge Date: 10/08/22 Primary care physician: Tato Lamar, DO Discharge provider: Liliam Leung MD Summary Hospital Course Discharge Diagnosis: Persistent nausea and vomiting Concern UTI Anxiety Small hiatal hernia Mild distal esophageal edema Mild colonic obstipation Reflux esophagitis Past medical history includes: Alopecia areata (~2004) Bladder incontinence Chicken pox Chronic pain of right knee Chronic right hip pain Constipation Eczema (~2004) GERD without esophagitis Hypothyroidism (acquired) Iliotibial band syndrome of both sides Low TSH level Pure hypercholesterolemia Rosacea (~2019) History of foot surgery (~2011) History of hysterectomy (~2009) Hospital Course: Michelle Tapia iss a 67-year-old female with hypothyroidism, dyslipidemia, bladder incontinence and anxiety with history of partial hysterectomy and surgical correction of a hammertoe.? Patient presented to the ED with complaint of emesis that started after eating out for dinner at about 5:00 p.m. she states about 10 minutes after they left she started having vomiting and has had persistent emesis since, initially was all food and then more bile.?Last meal was a salad at a local restaurant.? No one else has informed her that they were ill from eating at the same establishment. Denies initiation of new medications.? She states she is nauseated but does not have a lot of abdominal pain or cramping.? She has a little bit of epigastric discomfort.? She states she is been constipated for quite some time she will have small indy of stool and has bee going on for several weeks. She states she actually started to vomiting about 2 weeks ago,? She denies fevers she is felt a little chilled.? She has not been having persistent nausea.? She has been eating and drinking large glasses of prune juice to help with bowel movements and states she has not been taking much solids but mostly protein shakes and liquids.? Patient denies back or flank pain.? No chest pain or shortness of breath.? She does have a little bit of a cough and nasal congestion that is new and has had some sinus pr essure that is worsened over the past week.? She denies dysuria urgency or frequency.? No black or bloody stools.? Patient states no black or blood in her emesis.? Patient states she is had a prior hysterectomy states her ovaries are still present.? Patient smokes daily, 1/2 to 1 ppd depending on her stress level, occasional alcohol, she uses an edible marijuana daily for sleep.? Patient are bowel rest with initially NPO and then transitioned to oral clear fluids. However initially the patient's increased to diet was too soon and the patient needed to retract and go back to clear fluids. That her symptoms completely settled. Will be discharged on full fluids and then transition to regular food after a day of full fluids. Urine culture was negative. Status at Discharge Cognitive/behavioral status at discharge: at baseline, oriented Functional status at discharge: independent ambulation Overall status at discharge: patient is progressing back to baseline Time Spent with Patient Time spent: Greater than 30 minutes Exam Vital Signs (past 8 hours): Oxygen Delivery Method Room Air Oxygen Flow Rate 0 Narrative Exam Narrative: Gen: Alert, oriented, well-developed female HEENT: normocephalic, atraumatic, conjunctiva clear, sclera non-icteric, oral mucosa pink and moist Neck: supple, full ROM, no JVD, trachea is midline Resp: Lungs CTA, non-labored breathing CV: RRR, no murmur or rubs Abd: soft, no discomfort on palpation, normoactive BTs Skin: small bruising and petechie on arms, dry and intact Neuro: Alert and oriented X 4 w/no focal deficits. Speech clear and coherent. Extremities: moves all 4 extremities, is ambulatory, negative Humaira?s sign Psyche: normal mood and affect. Objective Labs 10/08/22 04:50 10/08/22 04:50 Labs: Laboratory Results - last 24 hr 10/08/22 10/08/22 04:50 04:50 WBC 7.6 RBC 3.94 L Hgb 12.5 Hct 37.2 MCV 94.4 MCH 31.9 MCHC 33.8 RDW 12.9 Plt Count 158 Neut % (Auto) 62.8 Lymph % (Auto) 28.3 [place] % (Auto) 7.8 Eos % (Auto) 0.8 L Baso % (Auto) 0.3 Neut # (Auto) 4800 Lymph # (Auto) 2200 [place] # (Auto) 600 Eos # (Auto) 100 Baso # (Auto) 0 Sodium 139 Potassium 3.6 Chloride 109 H Carbon Dioxide 24 BUN 7 Creatinine 0.62 Estimated GFR > 60 BUN/Creatinine Ratio 11.3 Glucose 83 Calcium 8.4 PFSH Medical History Alopecia areata (~2004) Bladder incontinence Chicken pox Chronic pain of right knee Chronic right hip pain Constipation Eczema (~2004) GERD without esophagitis Hypothyroidism (acquired) Iliotibial band syndrome of both sides Low TSH level Pure hypercholesterolemia Rosacea (~2019) Surgical History Anesthesia History of foot surgery (~2011) History of hysterectomy (~2009) Family History (Updated 10/06/22 @ 02:52 by DARLENE Ramsay) Father History of heart disease Myocardial infarction Grandfather Cancer Mother Hypertension Social History household members: spouse Smoking Status: Current every day smoker Discharge Plan Discharge Plan Patient Disposition: Home Discharge orders & Medications Prescriptions: New sennosides [senna] 8.6 mg Tablet 8.6 mg PO BID Qty: 60 0RF pantoprazole 40 mg Tablet,Delayed Release (Dr/Ec) 40 mg PO 0600 Qty: 30 0RF alum-mag hydroxide-simeth [Mag-Al Plus] 200-200-20 mg/5 mL Suspension 30 ml PO Q4HR PRN (Reason: Dyspepsia) Qty: 500 0RF lactulose 20 gram/30 mL Solution 20 gm PO DAILY Qty: 500 0RF Continued tolterodine 4 mg capsule,extended release 24hr See Rx Instructions .ROUTE .COMPLEX Qty: 90 3RF Dose Instruction: take 1 capsule by mouth once daily Rx Instructions: take 1 capsule by mouth once daily venlafaxine 150 mg capsule,extended release 24hr See Rx Instructions .ROUTE .COMPLEX Qty: 90 3RF Dose Instruction: take 1 capsule by mouth once daily Rx Instructions: take 1 capsule by mouth once daily rosuvastatin 10 mg tablet 10 mg PO QPM Qty: 90 0RF levothyroxine 88 mcg capsule 88 mcg PO DAILY Qty: 60 0RF spironolactone 50 mg tablet 100 mg PO DAILY aspirin 81 mg tablet,delayed release (DR/EC) 81 mg PO DAILY Follow up/Referrals: Tato Lamar, [Primary Care Provider] - Visit Report/Discharge Packet Stand Alone Forms: Patient Portal/API, Stroke Signs & Symptoms Discharge Data Primary Care Provider: Tato Lamar Attending Provider: Michelle Lundy
--- NOTE | 2022-10-08 15:47 | CM.DPC ---
DCP Discharge Home Per MD, pt medically stable to d/c home today and no identified barriers to discharge. Per RN, pt has been independent in room, tolerating diet, had bm and ambulating and no concerns noted. Plan: Patient to d/c home via spouse POV this evening and outpt f/u with PCP and no further SW needs at this time. ADÁN Pierce
--- NOTE | 2022-10-08 16:12 | PC.NURSE ---
Addendum entered by Nakia James R.N. 10/08/22 16:15: Valuables retrieved from safe and given to patient. Original Note: Discharge Note A&O, VSS, RA, no complaints of pain/discomfort. Patient w/ several bowel movements this shift, expresses improvement in symptoms and ready for discharge, no nausea/vomiting this shift. Discharge packet reviewed with patient, all questions/concerns addressed. PIV discontinued. Patient able to dress self and pack belongings. Patient reminded to black pickler prescriptions at preferred pharmacy. Patient taken down to POV and accompanied by .
== END 2022-10-08 16:05 | disposition home or self-care (01) ==
LOC: ED 10-06 01:40 → AC 10-06 01:41
PROVIDERS: Neuromusculoskeletal Medicine, Sports Medicine; Admitting Provider Nurse Practitioner Family; Emergency Provider Emergency Medicine; PCP Family Medicine; Referring Provider Emergency Medicine; Visit Provider Nurse Practitioner Family
DX: R11.11 Vomiting without nausea (principal); K21.00 Gastro-esophageal reflux disease with esophagitis, without bleeding; K44.9 Diaphragmatic hernia without obstruction or gangrene; K59.00 Constipation, unspecified; E03.9 Hypothyroidism, unspecified; E78.5 Hyperlipidemia, unspecified; F41.9 Anxiety disorder, unspecified; Z20.822 Contact with and (suspected) exposure to COVID-19
CPT/HCPCS: 0241U; 36415; 74177; 80048; 80053; 81003; 81015; 83605; 83690; 83735; 84145; 84481; 85025; 87040; 87086; 93005; 93010; 96361; 96365; 96372; 96375; 96376; 99284; G0378; C9113; J0696; J1200; J1650; J1885; J2060; J2270; J2405; J2765; Q9967

== ENCOUNTER → 2022-11-07 16:32 | Outpatient (CLI) | payer MEDICARE, OTHER, SELFPAY ==
--- NOTE | 2022-11-07 16:33 | DI.MG.S_ITS ---
BILATERAL DIGITAL SCREENING MAMMOGRAM 3D/2D WITH CAD: 11/07/2022 CLINICAL: Routine screening. Family history of breast cancer. Comparison is made to exams dated: 09/21/2021 mammogram, 09/20/2020 mammogram, and 05/11/2019 mammogram - [facility]. Both breasts are extremely dense, which lowers the sensitivity of mammography (category d />75% glandular tissue). Current study was also evaluated with a Computer Aided Detection (CAD) system. There are benign calcifications in both breasts. There also are benign vascular calcifications in both breasts. No significant masses, calcifications, or other findings are seen in either breast. There has been no significant interval change. IMPRESSION: BENIGN There is no mammographic evidence of malignancy. A 1 year screening mammogram is recommended. Based on Tyrer-Cuzick model (a risk assessment model), the patient's lifetime risk is 29.4% and her 10 year risk is 16.5%. If a patient has an elevated risk, a more comprehensive evaluation should be considered and/or a referral to a genetic counselor. The [place] [employer], [place] [employer], and NCCN Guidelines advise the consideration of Breast MRI as an adjunct to screening mammography in patients whose Lifetime risk to develop breast cancer is 20% or higher. This exam was interpreted at Station ID: [id number]. NOTE: For mammograms, a report in lay terms will be sent to the patient. Approximately 15% of breast malignancies will not be visualized mammographically. In the management of a palpable breast mass, a negative mammogram must not discourage biopsy of a clinically suspicious lesion. Electronically Signed By: Alejandro nichole/michel:11/08/2022 09:19:02 letter sent: Normal Exam ACR BI-RADS Category 2: Benign Finding(s) 3342F
== END ==
PROVIDERS: PCP Family Medicine; Referring Provider Family Medicine; Visit Provider Family Medicine
DX: Z12.31 Encounter for screening mammogram for malignant neoplasm of breast (principal); Z80.3 Family history of malignant neoplasm of breast
CPT/HCPCS: 77063; 77067

== ENCOUNTER 2022-11-19 17:31 | Emergency (ER) | payer MEDICARE, OTHER, SELFPAY ==
[2022-11-19 17:54] VITALS: BP 155/77; PULSE 88; RESP 18; TEMP 36.6; O2SAT 99; BMI 24.7
[2022-11-19] MEDS: ONDANSETRON 4 MG/2 ML INJ IV (18:13)
[2022-11-19 18:20] LABS: Add Manual Diff / Slide Review NO; Basophils Absolute Auto 0 /uL (0-100); Basophils Percent Auto 0.4 % (0-2); Eosinophils Absolute Auto 0 /uL (0-450); Hematocrit 46.8 % (36-46); Lymphocytes Absolute Auto 1400 /uL (1100-4500); Lymphocytes Percent Auto 11.3 % (25-40); Mean Corpuscular HGB Conc 34.1 % (30-36); Mean Corpuscular Hemoglobin 32.2 PG (26-34); Mean Corpuscular Volume 94.3 fL (80-100); Monocytes Absolute Auto 400 /uL (0-900); Monocytes Percent Auto 3.4 % (3-14); Neutrophils Absolute Auto 10400 /uL (1500-7000); Neutrophils Percent Auto 84.9 % (50-75); Platelet Count 227 X10^3/uL (150-400); Red Blood Cell Count 4.96 X10^6/uL (4.0-5.2); Red Cell Distribution Width 13.2 % (11.6-14.8); White Blood Cell Count 12.3 X10^3/uL (4.5-11.0)
[2022-11-19 18:29] LABS: Alanine Aminotransferase 25 IU/L (<35); Albumin 4.7 g/dL (3.5-5.0); Albumin Globulin Ratio 1.4 (1.0-2.8); Alkaline Phosphatase 126 U/L (38-126); Aspartate Aminotransferase 29 IU/L (14-36); BUN Creatinine Ratio 18.9 (6-22); Bilirubin Total 0.8 mg/dL (0.2-1.3); Blood Urea Nitrogen 14 mg/dL (7-17); Calcium 9.9 mg/dL (8.4-10.2); Carbon Dioxide 22 mmol/L (22-32); Chloride 105 mmol/L (98-107); Estimated Glomerular Filt Rate > 60 mL/min (>60); Globulin 3.3 g/dL (1.7-4.1); Glucose 130 mg/dL (80-110); HEMOLYSIS < 15 (0-50); Lipase 58 U/L (23-300); Potassium 4.1 mmol/L (3.4-5.1); Sodium 139 mmol/L (137-145)
[2022-11-19 18:54] LABS: COVID-19 CEPHEID 4-PLEX PCR Negative (Negative); Influenza A - CEPHEID Flu A NEGATIVE (NEGATIVE); Influenza B - CEPHEID Flu B NEGATIVE (NEGATIVE); Respiratory Syncytial Virus Negative (Negative)
[2022-11-19] MEDS: PANTOPRAZOLE 40 MG VIAL IV (21:40)
[2022-11-19] MEDS: SODIUM CHLORIDE 0.9% 1,000 ML 1000 ML IV ×2 (21:40→22:15)
[2022-11-19] MEDS: METOCLOPRAMIDE 10 MG/2 ML INJ IV (21:41)
--- NOTE | 2022-11-19 21:56 | ED.ABDPAIN ---
HPI - Abdominal Pain General Chief Complaint: Abdominal Pain Stated Complaint: vomiting, chills Time Seen by Provider: 11/19/22 21:06 Source: patient Mode of arrival: Ambulatory History of Present Illness HPI narrative: 67-year-old female without significant medical history presents with a chief complaint some nausea vomiting over the course of the day. She has mild crampy abdominal pain that seems to improve with episodes of vomiting. She denies any new medications or dietary change nor exposure to other ill persons. She is had no recent travel. She admits to some generalized chills and subjective fever. She is had no runny nose, sore throat or cough. She denies any dysuria, frequency or urgency. Related Data Home Medications Medication Instructions Recorded Confirmed aspirin 81 mg tablet,delayed 81 mg PO DAILY 08/23/20 10/11/22 release spironolactone 50 mg tablet 100 mg PO DAILY 08/23/20 10/11/22 Previous Rx's Medication Instructions Recorded tolterodine 4 mg capsule,extended See Rx Instructions .Route 02/13/22 release 24 hr .COMPLEX #90 caps venlafaxine 150 mg See Rx Instructions .Route 02/13/22 capsule,extended release 24 hr .COMPLEX #90 caps rosuvastatin 10 mg tablet 10 mg PO QPM #90 tabs 10/01/22 aluminum-mag hydroxide-simethicone 30 ml PO Q4HR PRN Dyspepsia #500 mL 10/08/22 200 mg-200 mg-20 mg/5 mL oral susp (Mag-Al Plus) lactulose 20 gram/30 mL oral 20 gm PO DAILY #500 mL 10/08/22 solution pantoprazole 40 mg tablet,delayed 40 mg PO 0600 #30 tabs 10/08/22 release sennosides 8.6 mg tablet (senna) 8.6 mg PO BID #60 tabs 10/08/22 levothyroxine 75 mcg capsule 75 mcg PO DAILY #60 caps 10/11/22 ondansetron 4 mg disintegrating 4 mg PO TID-QID PRN nausea and 11/20/22 tablet vomiting #10 tabs pantoprazole 40 mg tablet,delayed 40 mg PO DAILY #30 tabs 11/20/22 release (Protonix) Allergies Allergy/AdvReac Type Severity Reaction Status Date / Time levofloxacin [From Levaquin] Allergy Verified 10/11/22 11:23 Sulfa (Sulfonamide Allergy Verified 10/11/22 11:23 Antibiotics) Review of Systems Review of Systems Narrative: GENERAL: See HPI HEENT: Denies sinus pain, ear pain, sore throat, difficulty swallowing, dizziness. RESPIRATORY: Denies dyspnea, cough, wheezing, hemoptysis, sputum. CARDIOVASCULAR: Denies chest pain, palpitations, orthopnea, edema, GASTROINTESTINAL: See HPI : Denies dysuria, frequency, incontinence, hematuria, urinary retention. MUSCULOSKELETAL: denies weakness, joint pain, or bony pain SKIN: Denies rash, skin lesions, or other NEUROLOGIC: Denies weakness, headache, numbness, change in speech, confusion, seizures, incoordination. PSYCHIATRIC: No concerning psychosocial issues. 12 point review of systems is negative except for those stated above Patient History Medical History Alopecia areata (~2004) Bladder incontinence Chicken pox Chronic pain of right knee Chronic right hip pain Constipation Eczema (~2004) GERD without esophagitis Hypothyroidism (acquired) Iliotibial band syndrome of both sides Low TSH level Pure hypercholesterolemia Rosacea (~2019) Surgical History Anesthesia History of foot surgery (~2011) History of hysterectomy (~2009) Family History Father History of heart disease Myocardial infarction Grandfather Cancer Mother Hypertension Social History household members: spouse Smoking Status: Current every day smoker Smoking Status: Current every day smoker alcohol intake frequency: 0-2 drinks per day Substance Use Type: marijuana Exam Narrative Exam Narrative: GENERAL: [67] year old patient appears stated age. Well-developed patient, in mild distress. Appears unwell, holding emesis bag HEAD: Atraumatic. Normocephalic. EYES: Pupils equal round and reactive. Extraocular motions intact. No scleral icterus. No injection or drainage. ENT: Nose without bleeding, purulent drainage. Throat without erythema, tonsillar hypertrophy or exudate. Airway patent. NECK: Trachea midline. Non tender CARDIOVASCULAR: Regular rate and rhythm without murmurs, gallops, or rubs. RESPIRATORY: Clear to auscultation. Breath sounds equal bilaterally. No wheezes, rales, or rhonchi. GASTROINTESTINAL: Abdomen soft, non-tender, nondistended. Bowel sounds present EXTREMITIES: No edema or joint tenderness. BACK: Nontender without deformity or crepitance. No flank tenderness. NEURO: AOx3. SKIN: No rash or erythema of visible areas Initial Vital Signs Initial Vital Signs: Vital Signs Temperature 98 F 11/19/22 17:54 Pulse Rate 88 11/19/22 17:54 Respiratory Rate 18 11/19/22 17:54 Blood Pressure 155/77 H 11/19/22 17:54 Pulse Oximetry 99 11/19/22 17:54 Oxygen Delivery Method Room Air 11/19/22 17:54 Course Orders Ordered: ED Orders 11/19/22 22:00 CT abdomen pelvis w con Stat 11/19/22 22:45 Blood Culture Stat Discontinued Medications Sodium Chloride (Normal Saline 0.9%) 1,000 mls @ 1,000 mls/hr IV BOLUS ONE Stop: 11/19/22 22:05 Last Infusion: 11/20/22 00:03 Dose: 0 mls/hr Documented By: Admin: 11/19/22 21:40 Dose: 1,000 mls/hr Documented By: ROBSON Sodium Chloride (Normal Saline 0.9%) 1,000 mls @ 1,000 mls/hr IV BOLUS ONE Stop: 11/19/22 22:59 Last Infusion: 11/20/22 00:03 Dose: 0 mls/hr Documented By: Admin: 11/19/22 22:15 Dose: 1,000 mls/hr Documented By: ROBSON Ketorolac Tromethamine (Ketorolac 30 Mg/Ml Vial) 15 mg IV NOW ONE Stop: 11/19/22 22:01 Last Admin: 11/19/22 22:15 Dose: 15 mg Documented By: ROBSON Metoclopramide HCl (Metoclopramide 10 Mg/2 Ml Inj) 10 mg IV NOW ONE Stop: 11/19/22 21:31 Last Admin: 11/19/22 21:41 Dose: 10 mg Documented By: ROBSON Ondansetron HCl (Ondansetron 4 Mg Odt) 4 mg PO NOW PRN PRN Reason: Nausea And Vomiting Ondansetron HCl (Ondansetron 4 Mg/2 Ml Inj) 4 mg IV NOW PRN PRN Reason: Nausea And Vomiting Last Admin: 11/19/22 18:13 Dose: 4 mg Documented By: AMU Ondansetron HCl (Ondansetron 4 Mg Odt Prepack) 1 bottle MISC SEEINSTR ONE Stop: 11/20/22 00:57 Pantoprazole Sodium (Pantoprazole 40 Mg Vial) 40 mg IV NOW ONE Stop: 11/19/22 21:31 Last Admin: 11/19/22 21:40 Dose: 40 mg Documented By: BS Vital Signs Vital signs: Vital Signs - 8 hr 11/20/22 01:20 Pulse Rate 96 H Respiratory Rate 16 Blood Pressure 168/91 H Pulse Oximetry 100 Oxygen Delivery Method Room Air MDM - Abdominal Pain Lab Data 11/19/22 18:10 11/19/22 18:10 Labs: Lab Results 11/19/22 11/19/22 11/19/22 Range/Units 18:10 18:10 18:15 WBC 12.3 H (4.5-11.0) X10^3/uL RBC 4.96 (4.0-5.2) X10^6/uL Hgb 16.0 (12.0-16.0) g/dL Hct 46.8 H (36-46) % MCV 94.3 (80-100) fL MCH 32.2 (26-34) PG MCHC 34.1 (30-36) % RDW 13.2 (11.6-14.8) % Plt Count 227 (150-400) X10^3/uL Neut % (Auto) 84.9 H (50-75) % Lymph % (Auto) 11.3 L (25-40) % [place] % (Auto) 3.4 (3-14) % Eos % (Auto) 0.0 L (2-4) % Baso % (Auto) 0.4 (0-2) % Neut # (Auto) 90401 H (7158-3618) /uL Lymph # (Auto) 1400 (0906-4261) /uL [place] # (Auto) 400 (0-900) /uL Eos # (Auto) 0 (0-450) /uL Baso # (Auto) 0 (0-100) /uL Sodium 139 (137-145) mmol/L Potassium 4.1 (3.4-5.1) mmol/L Chloride 105 (98-107) mmol/L Carbon Dioxide 22 (22-32) mmol/L BUN 14 (7-17) mg/dL Creatinine 0.74 (0.52-1.04) mg/dL Estimated GFR > 60 (>60) mL/min BUN/Creatinine Ratio 18.9 (6-22) Glucose 130 H (80-110) mg/dL Lactate (0.7-2.1) mmol/L Calcium 9.9 (8.4-10.2) mg/dL Total Bilirubin 0.8 (0.2-1.3) mg/dL AST 29 (14-36) IU/L ALT 25 (<35) IU/L Alkaline Phosphatase 126 (38-126) U/L Total Protein 8.0 (6.3-8.2) g/dL Albumin 4.7 (3.5-5.0) g/dL Globulin 3.3 (1.7-4.1) g/dL Albumin/Globulin Ratio 1.4 (1.0-2.8) Lipase 58 (23-300) U/L SARS-CoV-2 (PCR) Negative (Negative) Influenza A (RT-PCR) Flu a negative (NEGATIVE) Influenza B (RT-PCR) Flu b negative (NEGATIVE) RSV (PCR) Negative (Negative) 11/19/22 Range/Units 18:15 WBC (4.5-11.0) X10^3/uL RBC (4.0-5.2) X10^6/uL Hgb (12.0-16.0) g/dL Hct (36-46) % MCV (80-100) fL MCH (26-34) PG MCHC (30-36) % RDW (11.6-14.8) % Plt Count (150-400) X10^3/uL Neut % (Auto) (50-75) % Lymph % (Auto) (25-40) % [place] % (Auto) (3-14) % Eos % (Auto) (2-4) % Baso % (Auto) (0-2) % Neut # (Auto) (1742-4592) /uL Lymph # (Auto) (8226-0100) /uL [place] # (Auto) (0-900) /uL Eos # (Auto) (0-450) /uL Baso # (Auto) (0-100) /uL Sodium (137-145) mmol/L Potassium (3.4-5.1) mmol/L Chloride (98-107) mmol/L Carbon Dioxide (22-32) mmol/L BUN (7-17) mg/dL Creatinine (0.52-1.04) mg/dL Estimated GFR (>60) mL/min BUN/Creatinine Ratio (6-22) Glucose (80-110) mg/dL Lactate 1.4 (0.7-2.1) mmol/L Calcium (8.4-10.2) mg/dL Total Bilirubin (0.2-1.3) mg/dL AST (14-36) IU/L ALT (<35) IU/L Alkaline Phosphatase (38-126) U/L Total Protein (6.3-8.2) g/dL Albumin (3.5-5.0) g/dL Globulin (1.7-4.1) g/dL Albumin/Globulin Ratio (1.0-2.8) Lipase (23-300) U/L SARS-CoV-2 (PCR) (Negative) Influenza A (RT-PCR) (NEGATIVE) Influenza B (RT-PCR) (NEGATIVE) RSV (PCR) (Negative) Point of care testing: Urine Dip Bedside Urine Glucose Negative Bedside Urine Bilirubin - Negative Bedside Urine Ketone +/- 5 Urine Specific [place] 1.015 Bedside Urine Occult Blood - Negative Bedside Urine pH 6.0 Bedside Urine Protein - Negative Bedside Urine Urobilinogen - Negative Bedside Urine Nitrite - Negative Bedside Urine Leukocytes - Negative Esterase MDM Narrative Medical decision making narrative: [67] year old patient presents with nausea and vomiting Multiple etiologies for patient's symptoms considered including, but not limited to: [Gastroenteritis, bowel obstruction, UTI, versus other] Prior Charts reviewed in our EMR Primary Historian: patient Labs reviewed and interpreted by myself: Mild leukocytosis with relative left shift, no evidence of anemia, electrolytes, renal function, LFTs and lactate all within normal Imaging reviewed: CT of abdomen and pelvis with IV contrast without acute findings Patient's symptoms improved over duration of stay with above-stated therapies. Pain well controlled, vital signs stable, nausea resolved, patient tolerating orals. No evidence of any significant diagnosis requiring specific intervention. History and physical as well as labs and imaging as well as response to therapies very reassuring. Findings and discharge diagnosis discussed with patient/family followed by verbalization of understanding Return precautions discussed with patient/family whom verbalize understanding of diagnosis and plan Discharge Plan Departure Patient Disposition: Home Clinical Impression: Vomiting Instructions: DI for Vomiting -- Adult Activity Restrictions/Additional Instructions: *You have been diagnosed with [abdominal pain and vomiting] * As we discussed your history and physical exam as well as labs and imaging are very reassuring. There is no evidence of any severe diagnoses that would require a specific or immediate intervention. *What to do: *Please continue to take your regular medications as directed. [x ] New medication prescriptions sent to your pharmacy: [[facility] ] *Please follow up with your primary care provider in 2-3 days, call for an appointment. Let them know you were seen in the Emergency Department and that we ask that you be seen in follow up. We will electronically transmit a record of today's note if your PCP is in our system *Please consider a clear liquid diet for the next 24-48 hours and then slowly advance to regular as tolerated. Also, try to avoid alcohol, nicotine, caffeine, spicy, acidic or fatty foods as this may worsen your symptoms *If you do not have a primary care provider please contact the [facility] Resource line at [phone]. They will ask some questions about your medical history and help get you set up with a doctor in the community. *Return to Emergency Department if you should have any new, worsening or concerning symptoms, such as [fever greater than 101 F, shaking chills, worsening pain, persistent vomiting or other bothersome symptoms] Prescriptions: New pantoprazole [Protonix] 40 mg tablet,delayed release (DR/EC) 40 mg PO DAILY Qty: 30 0RF ondansetron 4 mg tablet,disintegrating 4 mg PO TID-QID PRN (Reason: nausea and vomiting) Qty: 10 0RF No Action tolterodine 4 mg capsule,extended release 24hr See Rx Instructions .ROUTE .COMPLEX Qty: 90 3RF Dose Instruction: take 1 capsule by mouth once daily Rx Instructions: take 1 capsule by mouth once daily venlafaxine 150 mg capsule,extended release 24hr See Rx Instructions .ROUTE .COMPLEX Qty: 90 3RF Dose Instruction: take 1 capsule by mouth once daily Rx Instructions: take 1 capsule by mouth once daily rosuvastatin 10 mg tablet 10 mg PO QPM Qty: 90 0RF spironolactone 50 mg tablet 100 mg PO DAILY aspirin 81 mg tablet,delayed release (DR/EC) 81 mg PO DAILY levothyroxine 75 mcg capsule 75 mcg PO DAILY Qty: 60 0RF sennosides [senna] 8.6 mg Tablet 8.6 mg PO BID Qty: 60 0RF pantoprazole 40 mg Tablet,Delayed Release (Dr/Ec) 40 mg PO 0600 Qty: 30 0RF alum-mag hydroxide-simeth [Mag-Al Plus] 200-200-20 mg/5 mL Suspension 30 ml PO Q4HR PRN (Reason: Dyspepsia) Qty: 500 0RF lactulose 20 gram/30 mL Solution 20 gm PO DAILY Qty: 500 0RF Referrals: Tato Lamar DO [Primary Care Provider] - Stand Alone Forms: Patient Portal/API
--- NOTE | 2022-11-19 22:00 | DI.CT.S_ITS ---
PROCEDURE: CT ABDOMEN PELVIS W CON INDICATIONS: N/V abdominal pain, rigors TECHNIQUE: After the administration of IV contrast, axial sections were acquired from the lung bases to the pubic symphysis. Coronal and sagittal reformats were performed. For radiation dose reduction, the following was used: automated exposure control, adjustment of mA and/or kV according to patient size. COMPARISON: [facility], CT, CT ABDOMEN PELVIS W CON, 10/05/2022, 20:57. FINDINGS: Image quality: Excellent. Lung bases: There is minimal dependent atelectasis. Heart: Heart is normal in size. There is a small hiatal hernia. ABDOMEN: Liver: There is focal fatty infiltration in the anterior left hepatic lobe. Diffuse hypoattenuation of the liver is also noted compatible with mild generalized fatty infiltration. Gallbladder: Within normal limits without calcified gallstones. Biliary ducts: No biliary ductal dilatation. Pancreas: Unremarkable. Spleen: Normal in size. Adrenal Glands: No adrenal nodules. Kidneys and Ureters: No hydronephrosis. Stomach and Bowel: Stomach, small bowel loops, and colon are normal in caliber and wall thickness. No pericecal inflammatory changes to suggest appendicitis. Peritoneum: No abnormal intraperitoneal fluid. No free air. Ventral Wall: No hernia. Abdominal Nodes: No retroperitoneal or mesenteric adenopathy by size criteria. Vessels: Aorta and inferior vena cava are normal in size. PELVIS: Pelvic Organs: The uterus is surgically absent. Bladder: Unremarkable. Pelvic Nodes: No enlarged lymph nodes. Miscellaneous: No inguinal hernias are seen. Bones: Visualized osseous structures demonstrate no suspicious focal lesions. IMPRESSION: 1. No definite acute intra-abdominal abnormality. Specifically, no evidence of bowel obstruction. 2. Small hiatal hernia. 3. Hepatic steatosis. Dictated by: Lennox Johnson M.D. on 11/19/2022 at 23:13 Approved by: Lennox Johnson M.D. on 11/19/2022 at 23:17
[2022-11-19] MEDS: KETOROLAC 30 MG/ML VIAL 15 MG IV (22:15)
[2022-11-19 22:21] LABS: Lactate (Lactic Acid) 1.4 mmol/L (0.7-2.1)
[2022-11-20 01:20] VITALS: BP 168/91; PULSE 96; RESP 16; O2SAT 100
== END 2022-11-20 01:21 | disposition home or self-care (01) ==
PROVIDERS: Emergency Medicine; Emergency Provider Emergency Medicine; PCP Family Medicine
DX: R11.10 Vomiting, unspecified (principal); R10.9 Unspecified abdominal pain; D72.829 Elevated white blood cell count, unspecified; Z79.899 Other long term (current) drug therapy
CPT/HCPCS: 0241U; 36415; 74177; 80053; 81003; 83605; 83690; 85025; 87040; 93005; 96361; 96374; 96375; 99284; C9113; J1885; J2405; J2765; Q9967

== ENCOUNTER → 2022-11-29 11:27 | Outpatient (CLI) | payer MEDICARE, OTHER, SELFPAY ==
[2022-11-29 14:38] LABS: TSH w/ Reflex to FT4 < 0.02 uIU/mL (0.47-4.68)
[2022-11-29 15:29] LABS: Free T4, Direct Thyroxine 2.08 ng/dL (0.78-2.19)
== END ==
PROVIDERS: PCP Family Medicine; Referring Provider Family Medicine; Visit Provider Family Medicine
DX: E03.9 Hypothyroidism, unspecified (principal)
CPT/HCPCS: 36415; 84439; 84443

== ENCOUNTER → 2023-01-11 10:31 | Outpatient (CLI) | payer MEDICARE, OTHER, SELFPAY ==
--- NOTE | 2023-01-11 10:32 | DI.RAD.S_ITS ---
PROCEDURE: FL BARIUM SWALLOW INDICATIONS: Dysphagia and reflux COMPARISON: [facility], CT, CT ABDOMEN PELVIS W CON, 11/19/2022, 22:04. FINDINGS: Function: There is normal esophageal peristalsis. No elicited gastroesophageal reflux. There is normal transit of a calibrated barium tablet through the esophagus into the stomach. Morphology: Air-contrast images demonstrate normal mucosal morphology. Single contrast views show no esophageal strictures, extrinsic mass effects, or diverticula. Limited images of the stomach demonstrate normal appearance. Small hiatal hernia seen. IMPRESSION: No significant dysphagia. No reflux elicited. Small hiatal hernia. Dictated by: Pelon Pedraza M.D. on 01/11/2023 at 16:20 Approved by: Pelon Pedraza M.D. on 01/11/2023 at 16:25
== END ==
PROVIDERS: PCP Family Medicine; Referring Provider Surgery; Visit Provider Surgery
DX: K44.9 Diaphragmatic hernia without obstruction or gangrene (principal)
CPT/HCPCS: 74220

== ENCOUNTER 2023-02-14 12:06 | Day surgery (SDC) | payer MEDICARE, OTHER, SELFPAY ==
[2023-02-14 12:22] VITALS: BP 127/71; PULSE 95; RESP 16; TEMP 36.4; O2SAT 99; BMI 24.9
[2023-02-14] MEDS: LACTATED RINGERS 1,000 ML 125 ML IV (12:30)
--- NOTE | 2023-02-14 12:47 | P.HP_ITS ---
History of Present Illness History of Present Illness Date Patient Seen: 02/14/23 Time Patient Seen: 12:[address] [facility] [place] Narrative: Lisseth is here for her EGD and colonoscopy. See office note from December for details. She has had her barium swallow for dysphagia which showed only a small hiatal hernia. [facility] Medical History (Updated 01/09/23 @ 13:43 by Luiz Woodward MD) Alopecia areata (~2004) Bladder incontinence Chicken pox Chronic pain of right knee Chronic right hip pain Constipation Eczema (~2004) GERD without esophagitis Hypothyroidism (acquired) Iliotibial band syndrome of both sides Low TSH level Pure hypercholesterolemia Rosacea (~2019) Surgical History Anesthesia History of foot surgery (~2011) History of hysterectomy (~2009) Family History Father History of heart disease Myocardial infarction Grandfather Cancer Mother Hypertension Social History household members: spouse Smoking Status: Current every day smoker alcohol intake: current Meds Home Medications and Allergies Home Medications Medication Instructions Recorded Confirmed Type aspirin 81 mg tablet,delayed 81 mg PO DAILY 08/23/20 02/14/23 History release spironolactone 50 mg tablet 100 mg PO DAILY 08/23/20 02/14/23 History tolterodine 4 mg capsule,extended See Rx Instructions .Route 02/13/22 02/14/23 Rx release 24 hr .COMPLEX #90 caps venlafaxine 150 mg See Rx Instructions .Route 02/13/22 02/14/23 Rx capsule,extended release 24 hr .COMPLEX #90 caps aluminum-mag hydroxide-simethicone 30 ml PO Q4HR PRN Dyspepsia #500 mL 10/08/22 02/14/23 Rx 200 mg-200 mg-20 mg/5 mL oral susp (Mag-Al Plus) lactulose 20 gram/30 mL oral 20 gm PO DAILY #500 mL 10/08/22 02/14/23 Rx solution pantoprazole 40 mg tablet,delayed 40 mg PO 0600 #30 tabs 10/08/22 02/14/23 Rx release sennosides 8.6 mg tablet (senna) 8.6 mg PO BID #60 tabs 10/08/22 02/14/23 Rx ondansetron 4 mg disintegrating 4 mg PO TID-QID PRN nausea and 11/20/22 02/14/23 Rx tablet vomiting #10 tabs pantoprazole 40 mg tablet,delayed 40 mg PO DAILY #30 tabs 11/20/22 02/14/23 Rx release (Protonix) levothyroxine 75 mcg tablet 75 mcg PO DAILY #90 tabs 02/04/23 02/14/23 Rx rosuvastatin 10 mg tablet 10 mg PO QPM #90 tabs 02/04/23 02/14/23 Rx Allergies Allergy/AdvReac Type Severity Reaction Status Date / Time levofloxacin [From Levaquin] Allergy Verified 01/09/23 13:16 Sulfa (Sulfonamide Allergy Verified 01/09/23 13:16 Antibiotics) Exam Vital Signs (past 8 hours): - 02/14/23 12:22 Temperature 97.6 F Pulse Rate 95 H Respiratory Rate 16 Blood Pressure 127/71 Pulse Oximetry 99 Const General: healthy appearing Assessment & Plan Assessment and plan (1) Constipation: Qualifiers: Constipation type: unspecified constipation type Qualified Code(s): K59.00 - Constipation, unspecified Status: Acute (2) Dysphagia: Qualifiers: Dysphagia type: unspecified Qualified Code(s): R13.10 - Dysphagia, unspecified Status: Acute Plan We reviewed the risks and benefits of EGD and colonoscopy and she would like to proceed.
[2023-02-14 13:17] VITALS: BP 87/59; BP 99/60; PULSE 84; PULSE 87; RESP 16; RESP 20; TEMP 36.2; O2SAT 96; O2SAT 98
[2023-02-14 13:18] VITALS: BP 112/60; PULSE 81; RESP 20; O2SAT 96
--- NOTE | 2023-02-14 13:18 | P.OP.EGD&C_ITS ---
Operative Date/Time/Diagnoses Date of procedure: 02/14/23 Time of procedure: 13:19 Pre-op diagnosis: Dysphagia and constipation Post-op diagnosis: same Procedure & Clinicians Study performed: EGD and colonoscopy Same procedure as scheduled: Yes Surgeon: Luiz Woodward Procedure Notes Procedure in detail: Surgeon: Luiz Woodward MD Anesthesia: Raz Cespedes [employer]INE[employer] Procedure in detail: A timeout was performed. A bite blocked was placed and monitors were attached to the patient. The patient was positioned in a left lateral decubitus position. Sedation was administered. Once the patient was sedated the endoscope was inserted through the bite block and passed through the esophagus and stomach and into the duodenum. No abnormalities were seen. We then withdrew the scope into the stomach. No abnormalities were seen. The endoscope was retroflexed and a very small hiatal hernia was appreciable. The endoscope was straightned and withdrawn into the esophagus. Other abnormalities were seen. Findings: Small hiatal hernia Next we repositioned the patient for a colonoscopy. A digital rectal exam was performed and was normal. The colonoscope was inserted and advanced to approximately the sigmoid colon. Prep was inadequate to advance the colonoscope safely. The procedure was terminated Findings: Inadequate prep EBL: 0 Scope withdrawal time: Not applicable Sedation minutes: 11 minutes Post-procedure Disposition: PACU
[2023-02-14 13:21] VITALS: BP 111/66; PULSE 82; RESP 20; O2SAT 94
== END 2023-02-14 13:40 | disposition home or self-care (01) ==
PROVIDERS: PCP Family Medicine; Referring Provider Surgery; Visit Provider Surgery
PROC: 0DJD8ZZ Inspection of Lower Intestinal Tract, Via Natural or Artificial Opening Endoscopic (ICD-10-PCS; CPT 45378; principal; 2023-02-14 13:15)
PROC: 0DJ08ZZ Inspection of Upper Intestinal Tract, Via Natural or Artificial Opening Endoscopic (ICD-10-PCS; CPT 43235; 2023-02-14 13:15)
DX: K59.00 Constipation, unspecified (principal); R13.10 Dysphagia, unspecified; K44.9 Diaphragmatic hernia without obstruction or gangrene; Z53.09 Procedure and treatment not carried out because of other contraindication
CPT/HCPCS: 45330; 43235; 45378; J2704

== ENCOUNTER → 2023-11-20 14:01 | Outpatient (CLI) | payer MEDICARE, OTHER, SELFPAY ==
--- NOTE | 2023-11-20 14:03 | DI.MG.S_ITS ---
BILATERAL DIGITAL SCREENING MAMMOGRAM 3D/2D WITH CAD: 11/20/2023 CLINICAL: Routine screening. Family history of breast cancer. Comparison is made to exams dated: 11/07/2022 mammogram, 09/21/2021 mammogram, and 09/20/2020 mammogram - [facility]. Both breasts are heterogeneously dense, which may obscure small masses (category c / 51-75% glandular tissue). Current study was also evaluated with a Computer Aided Detection (CAD) system. There are benign calcifications in both breasts. There also are benign vascular calcifications in both breasts. No significant masses, calcifications, or other findings are seen in either breast. There has been no significant interval change. IMPRESSION: BENIGN There is no mammographic evidence of malignancy. A 1 year screening mammogram is recommended. Based on the Tyrer Cuzick model (a risk assessment model) the patient's lifetime risk is 19.4% and her 10 year risk is 11.1%. According to the ACR, ACS, and NCCN guidelines, an annual breast MRI exam along with mammogram is recommended if the patient's lifetime risk is 20% or greater. This exam was interpreted at Station ID: [id number]. NOTE: For mammograms, a report in lay terms will be sent to the patient. Approximately 15% of breast malignancies will not be visualized mammographically. In the management of a palpable breast mass, a negative mammogram must not discourage biopsy of a clinically suspicious lesion. Electronically Signed By: Amita cruz/michel:11/20/2023 16:37:32 letter sent: Normal Exam ACR BI-RADS Category 2: Benign Finding(s) 3342F
== END ==
LOC: MAMMO 14:02
PROVIDERS: PCP Family Medicine; Referring Provider Family Medicine; Visit Provider Family Medicine
DX: Z12.31 Encounter for screening mammogram for malignant neoplasm of breast (principal); Z80.3 Family history of malignant neoplasm of breast; R92.333 Mammographic heterogeneous density, bilateral breasts
CPT/HCPCS: 77063; 77067

== ENCOUNTER → 2024-02-27 14:57 | Outpatient (CLI) | payer MEDICARE, OTHER, SELFPAY ==
[2024-02-27 15:37] LABS: Add Manual Diff / Slide Review NO; Basophils Absolute Auto 100 /uL (0-100); Basophils Percent Auto 0.8 % (0-2); Eosinophils Absolute Auto 100 /uL (0-450); Eosinophils Percent Auto 1.4 % (2-4); Hematocrit 41.6 % (36-46); Lymphocytes Absolute Auto 2400 /uL (1100-4500); Lymphocytes Percent Auto 32.2 % (25-40); Mean Corpuscular HGB Conc 33.8 % (30-36); Mean Corpuscular Hemoglobin 32.9 PG (26-34); Mean Corpuscular Volume 97.3 fL (80-100); Monocytes Absolute Auto 500 /uL (0-900); Monocytes Percent Auto 6.9 % (3-14); Neutrophils Absolute Auto 4300 /uL (1500-7000); Neutrophils Percent Auto 58.7 % (50-75); Platelet Count 178 X10^3/uL (150-400); Red Blood Cell Count 4.28 X10^6/uL (4.0-5.2); Red Cell Distribution Width 12.7 % (11.6-14.8); White Blood Cell Count 7.3 X10^3/uL (4.5-11.0)
[2024-02-27 17:18] LABS: Alanine Aminotransferase 19 IU/L (<35); Albumin 4.1 g/dL (3.5-5.0); Albumin Globulin Ratio 1.6 (1.0-2.8); Alkaline Phosphatase 90 U/L (38-126); Aspartate Aminotransferase 28 IU/L (14-36); BUN Creatinine Ratio 14.1 (6-22); Bilirubin Total 0.7 mg/dL (0.2-1.3); Blood Urea Nitrogen 11 mg/dL (7-17); Carbon Dioxide 26 mmol/L (22-32); Chloride 107 mmol/L (98-107); Cholesterol 145 mg/dL (140-199); Estimated Glomerular Filt Rate > 60 mL/min (>60); Globulin 2.6 g/dL (1.7-4.1); Glucose 94 mg/dL (80-110); HDL Cholesterol 55 mg/dL (40-60); HEMOLYSIS 43 (0-50); LDL Cholesterol Calculated 66 mg/dL (<100); Potassium 4.1 mmol/L (3.4-5.1); Sodium 138 mmol/L (137-145); Total Protein 6.7 g/dL (6.3-8.2); Triglycerides 119 mg/dL (35-150)
[2024-02-27 17:36] LABS: TSH w/ Reflex to FT4 0.06 uIU/mL (0.47-4.68)
[2024-02-27 18:15] LABS: Free T4, Direct Thyroxine 1.67 ng/dL (0.78-2.19)
== END ==
PROVIDERS: PCP Family Medicine; Referring Provider Family Medicine; Visit Provider Family Medicine
DX: M76.31 Iliotibial band syndrome, right leg (principal); E03.9 Hypothyroidism, unspecified; M76.32 Iliotibial band syndrome, left leg; E78.00 Pure hypercholesterolemia, unspecified
CPT/HCPCS: 36415; 80053; 80061; 84439; 84443; 85025

== ENCOUNTER → 2025-02-25 13:03 | Outpatient (CLI) | payer MEDICARE, OTHER, SELFPAY ==
--- NOTE | 2025-02-25 13:04 | DI.MG.S_ITS ---
MM screening mammo BI: 02/25/2025. BI-RADS: 1 CLINICAL: 69-year old female for bilateral screening mammogram. Tyrer-Cuzick lifetime risk of 6.7%. No personal or first-degree family history of breast cancer. PRIOR EXAMS 11/20/2023, 11/07/2022, 09/21/2021, 09/20/2020. MAMMOGRAPHY TECHNIQUE: 2D and 3D (tomosynthesis) digital mammographic views obtained, with additional images as needed for full coverage. Current study was also evaluated with a Computer Aided Detection (CAD) system. DENSITY C. The breasts are heterogeneously dense, which may obscure small masses. MAMMOGRAPHY FINDINGS Bilateral: No suspicious mass, asymmetry, microcalcification, or other abnormality seen. No significant change from comparison. IMPRESSION: * No evidence of malignancy. RECOMMENDATIONS Bilateral * Annual screening mammography. OVERALL ASSESSMENT CATEGORY BI-RADS-1: Negative. The [employer] recommends annual screening mammography beginning at age 40 for women with average risk of breast cancer. ELECTRONICALLY SIGNED: Angelina Brice M.D. on 02/25/2025 at 11:38:26 PM PT Interpreting Station ID: [id number]
== END ==
PROVIDERS: PCP Family Medicine; Referring Provider Family Medicine; Visit Provider Family Medicine
DX: Z12.31 Encounter for screening mammogram for malignant neoplasm of breast (principal); R92.333 Mammographic heterogeneous density, bilateral breasts
CPT/HCPCS: 77063; 77067

== ENCOUNTER → 2025-03-25 12:57 | Outpatient (CLI) | payer MEDICARE, OTHER, SELFPAY ==
[2025-03-25 14:53] LABS: Free T3, Triiodothyronine Free 3.41 pg/mL (2.77-5.27); Free T4, Direct Thyroxine 1.82 ng/dL (0.78-2.19)
[2025-03-25 15:06] LABS: Thyroid Stimulating Hormone 0.084 uIU/mL (0.47-4.68)
== END ==
LOC: LAB 12:59
PROVIDERS: PCP Family Medicine; Referring Provider Family Medicine; Visit Provider Family Medicine
DX: E03.9 Hypothyroidism, unspecified (principal)
CPT/HCPCS: 36415; 84439; 84443; 84481